=== PATIENT | female | born 1955 | race Caucasian/White ===

== ENCOUNTER 2023-02-02 10:31 | Emergency (ER) | payer MEDICARE, MEDICAID, SELFPAY ==
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
--- NOTE | ~2023-02-02 | XR_ITS ---
EXAMINATION: XR KNEE, RIGHT CLINICAL INFORMATION: Fall. Pain. COMPARISON: None available. TECHNIQUE: Four views of the right knee. 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 No fracture, dislocation or x-ray evidence of loosening. No significant joint effusion. Soft tissue swelling over the inferior patella and patellar tendon. XR/XR knee RT 3V IMPRESSION: No fracture or dislocation. Soft tissue swelling over the inferior patella and patellar tendon.
[2023-02-02 11:33] VITALS: BP 148/82; PULSE 62; RESP 19; TEMP 36.6; O2SAT 98; BMI 30.7
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
[2023-02-02] MEDS: Lidocaine HCl 1 % MPF 5 ML VIAL SUBCUT (14:12)
[2023-02-02] MEDS: Bacitracin Oint 0.9 GM PACKET 3 APPL TOPICAL (14:13)
[2023-02-02] MEDS: Diphth,Pertus(ACell),Tet Adult 0.5 ML SYRINGE IM (14:21)
[2023-02-02] MEDS: Acetaminophen 325 MG TABLET 650 MG PO (14:21)
[2023-02-02 15:05] VITALS: BP 141/63; PULSE 81; RESP 18; O2SAT 98
== END 2023-02-02 15:22 | disposition home or self-care (01) ==
PROVIDERS: Emergency Provider Student in an Organized Health Care Education/Training Program; PCP Internal Medicine
DX: S01.111A Laceration without foreign body of right eyelid and periocular area, initial encounter (principal); W01.198A Fall on same level from slipping, tripping and stumbling with subsequent striking against other object, initial encounter; T25.212A Burn of second degree of left ankle, initial encounter; T22.111A Burn of first degree of right forearm, initial encounter; X10.2XXA Contact with fats and cooking oils, initial encounter; Y93.G3 Activity, cooking and baking; Y92.010 Kitchen of single-family (private) house as the place of occurrence of the external cause; Y99.9 Unspecified external cause status
CPT/HCPCS: 12011; 16020; 70450; 73562; 90471; 90715; 99284

== ENCOUNTER 2023-03-15 08:00 | Outpatient (RCR) | payer MEDICARE, MEDICAID, SELFPAY | END 2023-03-17 10:52 | disposition home or self-care (01) | LOC: HO.WCC 08:00 | PROVIDERS: PCP Internal Medicine; Visit Provider Surgery | DX: T25.212A Burn of second degree of left ankle, initial encounter (principal); I25.10 Atherosclerotic heart disease of native coronary artery without angina pectoris; T31.0 Burns involving less than 10% of body surface; X10.2XXA Contact with fats and cooking oils, initial encounter; Y93.G3 Activity, cooking and baking; Y92.9 Unspecified place or not applicable; Y99.9 Unspecified external cause status; Z87.891 Personal history of nicotine dependence; Z79.2 Long term (current) use of antibiotics; Z79.899 Other long term (current) drug therapy | CPT/HCPCS: 16020; 99212 ==

== ENCOUNTER 2025-08-19 09:08 | Observation (INO) | payer MEDICARE, SELFPAY ==
--- OUTSIDE RECORDS SUMMARY | 2025-08-17 23:59 | XMS_ITS | Continuity of Care Document ---
Author Organization [facility] Address [address] [place] [id number] Name Relationship Address Phone COTTON, CEM Personal Relationship Unknown Lisa vailable COTTON, CEM Personal Relationship Unknown Lisa vailable COTTON, CEM Personal Relationship Unknown Lisa vailable COTTON, CEM Personal Relationship Unknown Lisa vailable COTTON, CEM Personal Relationship Unknown Lisa vailable COTTON, CEM Personal Relationship Unknown Lisa vailable COTTON, CEM Personal Relationship Unknown Lisa vailable COTTON, CEM Personal Relationship Unknown Lisa vailable COTTON, CEM Personal Relationship Unknown Lisa vailable STAFINSKI, MICHAEL child Unknown Unavaila ble COTTON, CEM Personal Relationship Unknown Lisa vailable STADINSKI, FREDRICK child Unknown Unavail able COTTON, CEM Personal Relationship Unknown Lisa vailable COTTON, CEM Personal Relationship Unknown Lisa vailable COTTON, CEM Personal Relationship Unknown Lisa vailable COTTON, CEM Personal Relationship Unknown Lisa vailable COTTON, CEM Personal Relationship Unknown Lisa vailable COTTON, CEM Personal Relationship Unknown Lisa vailable COTTON, CEM Personal Relationship Unknown Lisa vailable COTTON, CEM spouse Unknown Unavailable COTTON, CEM Personal Relationship Unknown Lisa vailable COTTON, CEM Personal Relationship Unknown Lisa vailable COTTON, CEM Personal Relationship Unknown Lisa vailable COTTON, CEM Personal Relationship Unknown Lisa vailable COTTON, CEM Personal Relationship Unknown Lisa vailable COTTON, CEM Personal Relationship Unknown Lisa vailable COTTON, CEM Personal Relationship Unknown Lisa vailable COTTON, CEM Personal Relationship Unknown Lisa vailable COTTON, CEM Personal Relationship Unknown Lisa vailable COTTON, CEM Personal Relationship Unknown Lisa vailable COTTON, CEM Personal Relationship Unknown Lisa vailable COTTON, CEM Personal Relationship Unknown Lisa vailable COTTON, CEM Personal Relationship Unknown Lisa vailable COTTON, CEM Personal Relationship Unknown Lisa vailable COTTON, CEM Personal Relationship Unknown Lisa vailable COTTON, CEM Personal Relationship Unknown Lisa vailable COTTON, CEM Personal Relationship Unknown Lisa vailable COTTON, CEM Personal Relationship Unknown Lisa vailable COTTON, CEM Personal Relationship Unknown Lisa vailable COTTON, CEM Personal Relationship Unknown Lisa vailable COTTON, CEM Personal Relationship Unknown Lisa vailable COTTON, CEM Personal Relationship Unknown Lisa vailable COTTON, CEM Personal Relationship Unknown Lisa vailable COTTON, CEM Personal Relationship Unknown Lisa vailable COTTON, CEM Personal Relationship Unknown Lisa vailable COTTON, CEM Personal Relationship Unknown Lisa vailable COTTON, CEM Personal Relationship Unknown Lisa vailable COTTON, CEM Personal Relationship Unknown Lisa vailable COTTON, CEM Personal Relationship Unknown Lisa vailable COTTON, CEM Personal Relationship Unknown Lisa vailable COTTON, CEM Personal Relationship Unknown Lisa vailable COTTON, ALTON Personal Relationship Unknown Unav ailable COTTON, ALTON Personal Relationship Unknown Unav ailable COTTON, CEM Personal Relationship Unknown Lisa vailable COTTON, CEM Personal Relationship Unknown Lisa vailable COTTON, CEM Personal Relationship Unknown Lisa vailable COTTON, CEM Personal Relationship Unknown Lisa vailable COTTON, CEM Personal Relationship Unknown Lisa vailable COTTON, CEM Personal Relationship Unknown Ilsa vailable COTTON, CEM Personal Relationship Unknown Lisa vailable COTTON, CEM Personal Relationship Unknown Lisa vailable COTTON, CEM Personal Relationship Unknown Lisa vailable COTTON, CEM Personal Relationship Unknown Lisa vailable COTTON, CEM Personal Relationship Unknown Lisa vailable COTTON, CEM Personal Relationship Unknown Lisa vailable COTTON, CEM Personal Relationship Unknown Lisa vailable COTTON, CEM Personal Relationship Unknown Lisa vailable COTTON, CEM Personal Relationship Unknown Lisa vailable COTTON, CEM Personal Relationship Unknown Lisa vailable COTTON, CEM Personal Relationship Unknown Lisa vailable COTTON, CEM Personal Relationship Unknown Lisa vailable COTTON, CEM Personal Relationship Unknown Lisa vailable COTTON, CEM Personal Relationship Unknown Lisa vailable ARGELIA MCGRATH mother Unknown Unavailable COTTON, CEM spouse Unknown Unavailable COTTON, CEM Personal Relationship Unknown Lisa vailable Care Team Providers Care Pipe And Test Supervisor Name Role Phone Renata CORNEJO, Jacqui Primary Care Physician Encounter [facility] Date(s): 07/18/25 - 08/17/25 [facility] [address] [place] [id number] Attending Physician: Mariama Guidry Admitting Physician: AdmMariama matos Referring Physician: AdmtrMariama Encounter Type: Triage Allergies, Adverse Reactions, Alerts Substance Criticality Severity Reaction Reaction Severity Status morphine itchy Active Tylenol with Codeine itchy Active Keflex Unable to assess criticality Intermittent Allergic skin rash Active Contrast Dye n/v Active Immunizations Given and Recorded Vaccine Date Status Refusal Reason influenza virus vaccine, inactivated 09/16/24 Marco rded influenza virus vaccine, inactivated 1 08/24/23 Gi red influenza virus vaccine, inactivated 06/21/22 Marco rded influenza virus vaccine, inactivated 06/06/21 Marco rded influenza virus vaccine, inactivated 05/22/20 Give n influenza virus vaccine, inactivated 2 06/17/18 Gi red influenza virus vaccine, inactivated 3 07/09/17 Gi red influenza virus vaccine, inactivated 4 06/29/16 Gi red influenza virus vaccine, inactivated 08/05/15 Give n influenza virus vaccine, inactivated 07/18/12 Give n influenza virus vaccine, inactivated 04/29/11 Give n influenza virus vaccine, inactivated 5 06/23/10 Gi red influenza virus vaccine, inactivated 6 06/16/09 Gi red pneumococcal 23-valent vaccine 7, 8 08/24/23 Given pneumococcal 23-valent vaccine 9 06/01/11 Given pneumococcal 23-valent vaccine 10 08/29/04 Given tetanus/diphtheria/pertussis, acel(Tdap) 02/02/23 Recorded zoster vaccine, inactivated 11 05/04/22 Given zoster vaccine, inactivated 12 10/06/21 Given SARS-CoV-2 (COVID-19) mRNA-1273 vaccine 08/25/21 R ecorded SARS-CoV-2 (COVID-19) mRNA-1273 vaccine 11/17/20 G iven SARS-CoV-2 (COVID-19) mRNA-1273 vaccine 10/20/20 G iven Influenza Virus Vaccine (oldterm) 06/13/19 Recorde d Hepatitis B Vaccine (old term) 11/30/16 Given Fluzone (oldterm) 07/16/14 Given pneumococcal 13-valent vaccine 04/24/13 Given Tetanus-Diphth Toxoids, Adult (oldterm) 04/29/11 G iven influ virus vac, H1N1, inactive(oldterm) 13 07/31/09 Given Influenza Inactive (IM) (oldterm) 14 06/03/08 Give n Influenza Inactive (IM) (oldterm) 07/17/07 Given Tet/Diphth/Acel, Pertussis (oldterm) 09/25/07 Give n Haemophilus B-Hepatitis B Vaccine 15 05/22/07 Give n 1Result Comment: [facility] [id number] 2Admin Note: [facility] 3Admin Note: [facility] 4Admin Note: Afluria made by [facility] 5Admin Note: Done at Dr. Gómez's office 6Admin Note: At Dr. Gómez 7Early/Late Reason: Early/Late Reason: Other : . 8Result Comment: [facility] [id number] 9Admin Note: VIS given 10Admin Note: Taken from [facility] sheet 11Result Comment: Shingrix#2 12Result Comment: First dose 13Admin Note: VIS given 14Admin Note: vis given 15Admin Note: #3 per pt Medications albuterol CFC free 90 mcg/inh inhalation aerosol 2, puffs, Inhalation, Every 4 hours, PRN, # 1 each, Refills 0, Tot. Refills 0, Soft Stop, 05/23/25 4:21:00 PM EDT, Aerosol, Route to Pharmacy Electronically, [id number], [facility], 158, cm, 05/21/25 9:07:00 EDT, Height, 78.6, kg, 12/22/23 18:19:00 EDT, Dry Weight Start Date: 05/23/25 Stop Date: 06/22/25 Status: Ordered Medication Dispense Status: Completed Quantity: 1.0 Unit: each Total Allowed Fills: 1 Fills Dispensed: 0 Aldactone 25 mg oral tablet 25 mg, 1, tablet, By Mouth, Daily, # 30 tablet, Refills 11, Tot. Refills 11, Maintenance, 06/27/24 11:05:00 AM EDT, Route to Pharmacy Electronically, [facility], Partial fill upon patient request if the prescription is for a schedule II opioid drug., 163, cm, 06/27/24 10:46:00 EDT, Height, 78.6, kg, 12/22/23 18:19:00 EDT, Dry Weight Start Date: 06/27/24 Stop Date: 06/22/25 Status: Ordered Medication Dispense Status: Completed Quantity: 30.0 Unit: tablet Total Allowed Fills: 12 Fills Dispensed: 0 Aspirin Low Dose 81 mg oral delayed release tablet 1 tablet = 81 mg, By Mouth, Daily, # 90 tablet, 2 Refills, Maintenance, 01/01/22 8:24:00 AM EDT, EC Tablet, [facility], Partial fill upon patient request if the prescription is for a schedule II opioid drug., 163, cm, 01/01/22 7:19:00 EDT, Height, 83, kg, 12/29/21 22:39:00 EDT, Dry Weight Start Date: 01/01/22 Status: Ordered Medication Dispense Status: Completed Quantity: 90.0 Unit: tablet Total Allowed Fills: 3 Fills Dispensed: 0 Atrovent HFA 17 mcg/inh inhalation aerosol 2 puffs, Inhalation, 4 times a day, # 3 each, 0 Refills, Maintenance, 08/09/24 11:12:00 AM EST, Aerosol, [facility], 163, cm, 08/05/24 9:09:00 EST, Height, 78.6, kg, 12/22/23 18:19:00 EDT, Dry Weight Start Date: 08/09/24 Stop Date: 11/07/24 Status: Ordered Medication Dispense Status: Completed Quantity: 3.0 Unit: each Total Allowed Fills: 1 Fills Dispensed: 0 Azithromycin 5 Day Dose Pack 250 mg oral tablet 1 pack/packet, By Mouth, Once, # 6 tablet, 0 Refills, Soft Stop, 05/21/25 9:31:00 AM EDT, Tablet, [facility], Partial fill upon patient request if the prescription is for a schedule II opioid drug., 158, cm, 05/21/25 9:07:00 EDT, Height, 78.6, kg, 12/22/23 18:19:00 EDT, Dry Weight Start Date: 05/21/25 Status: Ordered Medication Dispense Status: Completed Quantity: 6.0 Unit: tablet Total Allowed Fills: 1 Fills Dispensed: 0 Indications: Acute upper respiratory infection, unspecified; darunavir 800 mg oral tablet 1 tablet, By Mouth, Daily, WITH GENVOYA., # 30 tablet, 5 Refills, Maintenance, 03/19/25 8:56:00 AM EDT, [facility], 158, cm, 01/22/25 12:31:00 EDT, Height, 78.6, kg, 12/22/23 18:19:00 EDT, Dry Weight Start Date: 03/19/25 Status: Ordered Medication Dispense Status: Completed Quantity: 30.0 Unit: tablet Total Allowed Fills: 1 Fills Dispensed: 0 Dilt-XR 120 mg/24 hours oral capsule, extended release TAKE 1 CAPSULE BY MOUTH EVERY DAY Start Date: 02/08/25 Status: Ordered Medication Dispense Status: Completed Total Allowed Fills: 1 Fills Dispensed: 0 doxycycline hyclate 100 mg oral capsule 2 capsule = 200 mg, By Mouth, Once, # 2 capsule, 0 Refills, Soft Stop, 01/22/25 12:58:00 PM EDT, Capsule, [facility], Partial fill upon patient request if the prescription is for a schedule II opioid drug., 158, cm, 01/22/25 12:31:00 EDT, Height, 78.6, kg, 12/22/23 18:19:00 EDT, Dry Weight Start Date: 01/22/25 Status: Ordered Medication Dispense Status: Completed Quantity: 2.0 Unit: capsule Total Allowed Fills: 1 Fills Dispensed: 0 Indications: Insect bite (nonvenomous) of lower back and pelvis, initial encounter; Genvoya oral tablet 1 tablet, By Mouth, Daily, WITH FOOD., # 30 tablet, 5 Refills, Maintenance, 05/06/25 1:37:00 PM EDT, [facility], 30, TAKE 1 TABLET BY MOUTH EVERY DAY WITH FOOD, 158, cm, 04/01/25 15:00:00 EDT, Height, 78.6, kg, 12/22/23 18:19:00 EDT, Dry Weight Start Date: 05/06/25 Status: Ordered Medication Dispense Status: Completed Quantity: 30.0 Unit: tablet Total Allowed Fills: 1 Fills Dispensed: 0 hydrochlorothiazide-valsartan 25 mg-320 mg oral tablet 1 tablet, By Mouth, Daily, # 90 tablet, 3 Refills, Maintenance, 06/27/24 11:04:00 AM EDT, [facility], 90, 1 tablet By Mouth Daily, 163, cm, 06/27/24 10:46:00 EDT, Height, 78.6, kg, 12/22/23 18:19:00 EDT, Dry Weight Start Date: 06/27/24 Status: Ordered Medication Dispense Status: Completed Quantity: 90.0 Unit: tablet Total Allowed Fills: 4 Fills Dispensed: 0 isosorbide mononitrate 60 mg oral tablet, extended release 1 tablet = 60 mg, By Mouth, Daily in AM, # 30 tablet, 0 Refills, Maintenance, 03/25/25 5:02:00 PM EDT, EC Tablet, [facility] 3, Partial fill upon patient request if the prescription is fora schedule II opioid drug., 158, cm, 01/22/25 12:31:00 EDT, Height, 78.6, kg, 12/22/23 18:19:00 EDT, Dry Weight Start Date: 03/25/25 Status: Ordered Medication Dispense Status: Completed Quantity: 30.0 Unit: tablet Total Allowed Fills: 1 Fills Dispensed: 0 L-Citrulline 0 Refills, Maintenance, 03/26/25 11:42:00 AM EDT, Partial fill upon patient request if the prescription is for a schedule II opioid drug. Start Date: 03/26/25 Status: Ordered Medication Dispense Status: Completed Total Allowed Fills: 1 Fills Dispensed: 0 nitroglycerin 0.4 mg sublingual tablet 1 tablet = 0.4 mg, Sublingual, Every 5 minutes, PRN as needed for chest pain, not to exceed 3 doses/15 min--if pain persists, seek medical attention, # 25 tablet, 0 Refills, Maintenance, 01/01/22 8:30:00 AM EDT, Tablet, [facility], Partial fill upon patient request if the prescription is for a schedule II opioid drug., 163, cm, 01/01/22 7:19:00 EDT, Height, 83, kg, 12/29/21 22:39:00 EDT, Dry Weight Start Date: 01/01/22 Status: Ordered Medication Dispense Status: Completed Quantity: 25.0 Unit: tablet Total Allowed Fills: 1 Fills Dispensed: 0 rosuvastatin 40 mg oral tablet See Instructions, TAKE 1 TABLET BY MOUTH EVERY DAY, # 90 tablet, 3 Refills, Maintenance, 06/27/24 11:04:00 AM EDT, [facility], 163, cm, 06/27/24 10:46:00 EDT, Height, 78.6, kg, 12/21/2417:19:00 EDT, Dry Weight Start Date: 06/27/24 Status: Ordered Medication Dispense Status: Completed Quantity: 90.0 Unit: tablet Total Allowed Fills: 4 Fills Dispensed: 0 Symbicort 80mcg/4.5mcg Inhaler 2, inhalation, Inhalation, 2 times a day, in the morning and the evening rinse mouth and throat after use, # 6.9 Gm, Refills 0, Tot. Refills 0, Maintenance, 05/21/25 9:31:00 AM EDT, Aerosol, Route to Pharmacy Electronically, [id number], [facility], 158, cm, 9:07:00 EDT, Height, 78.6, kg, 12/22/23 18:19:00 EDT, Dry Weight Start Date: 05/21/25 Status: Ordered Medication Dispense Status: Completed Quantity: 6.9 Unit: g Total Allowed Fills: 1 Fills Dispensed: 0 Indications: Acute upper respiratory infection, unspecified; Vitamin D3 oral tablet 1 tablet = 10 mcg, By Mouth, Daily, 0 Refills, Maintenance, 11/09/23 2:34:00 PM EDT, Partial fill upon patient request if the prescription is for a schedule II opioid drug. 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 Esophageal diverticulum Confirmed Active Esophageal dysmotility Confirmed Active Phobia, flying Confirmed Active GERD (gastroesophageal reflux disease) Confirmed Active Cardiac microvascular disease Confirmed Active Presence of left artificial knee joint Confirmed Active HIV (human immunodeficiency virus infection) 1 Confirmed Active Hyperlipidemia Confirmed Active Obese class I Confirmed Active Osteoarthritis of left knee Confirmed Active Osteoarthritis of right knee Confirmed Active Presbyesophagus Confirmed Active [id number] negative Social History Social History Type Response Smoking Status Former smoker; Stopp ed at age: 46; entered on: 11/08/13 Sex Sex Representation Female (finding) Patient Care team information Care Team Personnel Name: Dang Reilly RN 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: [facility] 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 Member Role: Chargeback Analyst Name: Pamella Desir RN Position: [facility] RN Member Role: Primary Care Nurse Name: Noe Funk RN Position: [facility] RN Member Role: Primary Care Nurse Name: Ellie Mike Position: [facility] Outreach Member Role: Lifetime Consulting Physician Name: Chantelle Manriquez RN Position: [facility] RN Member Role: Primary Care Nurse Name: Fina Kaur RN Position: [facility] RN Member Role: Primary Care Nurse Name: Betty Sanabria RN Position: [facility] SN RN Member Role: Primary Care Nurse Name: Ca Cerrato RN Position: [facility] ED RN W/OE and Tasks Member Role: Primary Care Nurse Name: Tiff Almanza RN Position: [facility] RN Member Role: Primary Care Nurse Name: Molly Burrell RN Position: [facility] RN Member Role: Primary Care Nurse Name: Jacqui Yanez MD Position: [facility] Physician - Primary Care Member Role: PCP Address: [address] [place] [id number] [place] Telecom: Name: Luz Elena Hoffman RN Position: [facility] RN Member Role: Primary Care Nurse Name: Lennox Romero MD Position: [facility] Physician - Infectious Disease Member Role: Lifetime Consulting Physician Address: [address] [place] [address] [place] [address]- Telecom: Name: Alpa Patel RN Position: S RN Member Role: Primary Care Nurse Name: Cece Lenz LPN Position: S RN Member Role: Primary Care Nurse Name: Inez Mancia RN Position: S RN Member Role: Primary Care Nurse Care Team Related Persons Name: CEM KNAPP Name: ARGELIA MCGRATH Name: FREDRICK COLMENARES Name: MICHAEL RAMSEY Insurance Providers Guarantor name: KEREN KNAPP Health Plan Information #: 1 Payer: MEDICARE B Payer Identifier: PATEL Member Number: [id number] Group Number: NA Subscriber Identifier: NA Relationship to Subscriber: self Coverage Type: NA Coverage Verification Date: NA Telecom: NA Address: Health Plan Information #: 2 Payer: [employer] SECONDARY ONLY Payer Identifier: PATEL Member Number: [id number] Group Number: [id number] Subscriber Identifier: NA Relationship to Subscriber: self Coverage Type: Medicare Other Coverage Verification Date: NA Telecom: NA Address:
--- OUTSIDE RECORDS SUMMARY | 2025-08-17 23:59 | XMS_ITS | Continuity of Care Document ---
Author Organization [facility] Address [address] [place] [address]- Support Name Relationship Address Phone COTTON, CEM [...] vailable COTTON, CEM spouse Unknown Unavailable COTTON, CME Personal Relationship Unknown Lisa vailable COTTON, CEM [...] CEM Personal Relationship Unknown Lisa vailable COTTON, ECM Personal Relationship Unknown Lisa vailable COTTON, CEM Personal Relationship Unknown Lisa vailable COTTON, CEM Personal Relationship Unknown Lisa vailable COTTON, CEM Personal Relationship Unknown Lisa vailable COTTON, CEM Personal Relationship Unknown Lisa vailable COTTON, CME Personal Relationship Unknown Lisa vailable COTTON, CEM [...] Unknown Lisa vailable Care Team Providers Care Office Clerk Assistant Name Role Phone Renata CORNEJO, Jacqui Primary Care Physician [place] [facility] [place]): [place] 08/17/25 [facility] [place], [place] [address] Attending Physician: Nick STARK, Joaquín Castellon Admitting Physician: Nick STARK, Joaquín Castellon Referring Physician: Jacqui Yanez MD Encounter Type: Pre-OutPatient One Time Allergies, Adverse Reactions, Alerts Substance Criticality Severity Reaction Reaction Severity Status morphine itchy Active Keflex Unable to assess criticality Intermittent Allergic skin rash Active Tylenol with Codeine itchy Active Contrast Dye n/v Active Immunizations Given [...] Vaccine 15 05/22/07 Give n 1Result Comment: [facility] [id number] 2Admin Note: [facility] 3Admin Note[facility] 4Admin Note: Afluria made by [employer] 5Admin Note: Done at Dr. Gómez's office 6Admin Note: At Dr. Gómez 7Early/Late Reason: Early/Late Reason: Other : . 8Result Comment: [facility] [id number] 9Admin Note: VIS given 10Admin Note: Taken [...] PM EDT, Aerosol, Route to Pharmacy Electronically, [id number], [facility], 158, cm, 05/21/25 9:07:00 EDT, [...] 11:05:00 AM EDT, Route to Pharmacy Electronically, [facility], Partial fill upon patient request [...] Maintenance, 01/01/22 8:24:00 AM EDT, EC Tablet, [facility], Partial fill upon patient request if [...] Refills, Maintenance, 08/09/24 11:12:00 AM EST, Aerosol, [facility], 163, cm, 08/05/24 9:09:00 EST, Height, 78.6, kg, 12/22/23 18:19:00 EDT, Dry Weight Start Date: 08/09/24 Stop Date: 11/07/24 Status: Ordered Medication Dispense Status: Completed Quantity: 3.0 Unit: each Total Allowed Fills: 1 Fills Dispensed: 0 Azithromycin 5 Day Dose Pack 250 mg oral tablet 1 pack/packet, By Mouth, Once, # 6 tablet, 0 Refills, Soft Stop, 05/21/25 9:31:00 AM EDT, Tablet, [facility], Partial fill upon patient request if [...] 5 Refills, Maintenance, 03/19/25 8:56:00 AM EDT, [facility], 158, cm, 01/22/25 12:31:00 EDT, Height, [...] Soft Stop, 01/22/25 12:58:00 PM EDT, Capsule, [facility], Partial fill upon patient request [...] 5 Refills, Maintenance, 05/06/25 1:37:00 PM EDT, [facility], 30, TAKE 1 TABLET BY MOUTH [...] 3 Refills, Maintenance, 06/27/24 11:04:00 AM EDT, [facility], 90, 1 tablet By Mouth [...] Maintenance, 03/25/25 5:02:00 PM EDT, EC Tablet, [facility], Partial fill upon patient request if [...] Refills, Maintenance, 01/01/22 8:30:00 AM EDT, Tablet, [facility], Partial fill upon patient request [...] 3 Refills, Maintenance, 06/27/24 11:04:00 AM EDT, [facility], 163, cm, 06/27/24 10:46:00 EDT, [...] AM EDT, Aerosol, Route to Pharmacy Electronically, [id number], [facility], 158, cm, 9:07:00 EDT, Height, [...] Benign essential hypertension Confirmed Active CAD in [place] artery Confirmed Active Endothelial dysfunction of coronary [...] right knee Confirmed Active Presbyesophagus Confirmed Active [id number] negative Social History Social History Type Response Smoking Status Former smoker; Stopp ed at age: 46; entered on: 11/08/13 Sex Sex Representation Female (finding) Patient Care team information Care Team Personnel Name: Dang Reilly RN 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 Member Role: Inlayer Silver Name: Pamella Desir RN Position: [facility] RN Member Role: Primary Care Nurse Name: Noe Funk RN Position: [facility] RN Member Role: Primary Care Nurse Name: Ellie Mike Position: [facility] Outreach Member Role: Lifetime Consulting Physician Name: Chantelle Manriquez RN Position: [facility] RN Member Role: Primary Care Nurse Name: Fina Kaur RN Position: [facility] RN Member Role: Primary Care Nurse Name: Betty Sanabria RN Position: [facility] SN RN Member Role: Primary Care Nurse Name: Ca Cerrato RN Position: [facility] ED RN W/OE and Tasks Member Role: Primary Care Nurse Name: Tiff Almanza RN Position: [facility] RN Member Role: Primary Care Nurse Name: Molly Burrell RN Position: [facility] RN Member Role: Primary Care Nurse Name: Jacqui Yanez MD Position: [facility] Physician - Primary Care Member Role: PCP Address: [address] [place] [address]- Telecom: Name: Luz Elena Hoffman RN Position: [facility] RN Member Role: Primary Care Nurse Name: Lennox Romero MD Position: [facility] Physician - Infectious Disease Member Role: Lifetime Consulting Physician Address: [address] [place] [address] [place] [address]- Telecom: Name: Alpa Patel RN Position: [facility] RN Member Role: Primary Care Nurse Name: Cece Lenz LPN Position: [facility] RN Member Role: Primary Care Nurse Name: Inez Mancia RN Position: S RN Member Role: Primary Care Nurse Care Team Related Persons Name: CEM KNAPP Name: ARGELIA MCGRATH Name: FREDRICK COLMENARES Name: MICHAEL RAMSEY Insurance Providers Guarantor name: KEREN KNAPP [facility] Information #: 1 Payer: MEDICARE B Payer Identifier: Member Number: [id number] Group Number: Subscriber Identifier: [id number] Relationship to Subscriber: self Coverage Type: NA Coverage Verification Date: NA Telecom: NA Address: [facility] Information #: 2 Payer: MEDEX SECONDARY ONLY Payer Identifier: Member Number: [id number] Group Number: Subscriber Identifier: [id number] Relationship to Subscriber: self Coverage Type: Medicare Other Coverage Verification Date: NA Telecom: NA Address:
[2025-08-19] VITALS (11 sets, daily range): BP systolic 120–160; BP diastolic 58–92; PULSE 77–92; RESP 14–22; TEMP 36.6–36.9; O2SAT 87–96; BMI 27.3
--- NOTE | ~2025-08-19 | CT_ITS ---
EXAMINATION: CT CHEST WITHOUT IV CONTRAST INDICATION: worsening cough, chills COMPARISON: There are no prior studies available for comparison. TECHNIQUE: Helical CT scan of the chest was performed without intravenous contrast. Coronal and sagittal reformatted images were generated and reviewed. This CT exam was performed with one or more of the following dose reduction techniques: automated exposure control, adjustment of the mA and/or kV according to patient size, use of iterative reconstruction technique. DLP: 296 mGy-cm CHEST: THYROID: The thyroid is unremarkable. LUNGS: There is mild bronchial wall thickening and partial opacification in the lower lobes, compatible with bronchitis. There are no focal airspace opacities or pulmonary nodules. MEDIASTINUM: There is no mediastinal lymphadenopathy. MYRIAM: Evaluation of the hilar regions is limited by lack of intravenous contrast material. CARDIOVASCULATURE: The heart is normal in size. There is no pericardial effusion. The thoracic aorta is normal in caliber. DEGREE OF CORONARY CALCIFICATION: severe PLEURA: There is no pleural effusion. No pneumothorax. MAIN AIRWAYS: The mainstem bronchi and proximal branches are patent. AXILLA: There is no axillary lymphadenopathy. BONES AND SOFT TISSUES: There is degenerative disc disease of the spine. UPPER ABDOMEN: The visualized portions of the liver, spleen, and adrenals have an unremarkable unenhanced appearance. CT/CT chest wo IV con IMPRESSION: 1. Mild bronchial wall thickening and partial opacification in the lower lobes, compatible with bronchitis. 2. Severe coronary arterial calcification. Electronically signed by: Kobe Maria MD 08/19/2025 11:16 AM [facility]
--- NOTE | 2025-08-19 09:30 | ECG_ITS ---
Test Reason : syncope Blood Pressure : */* mmHG Vent. Rate : 79 BPM Atrial Rate : 79 BPM P-R Int : 140 ms QRS Dur : 84 ms QT Int : 380 ms P-R-T Axes : 68 30 49 degrees QTcB Int : 435 ms Normal sinus rhythm Nonspecific ST abnormality Abnormal ECG No previous ECGs available Referred By: Mary Martin Electronically Signed By: RONY DWYER MD
--- NOTE | 2025-08-19 09:34 | ED.SOB ---
HPI - SOB/Dyspnea General Chief Complaint: Dyspnea Stated Complaint: SOB,N/V,RECENT URI/ON ABX & PRED PER EMS Time Seen by Provider: 08/19/25 09:22 Source: patient, EMS and old records reviewed Mode of arrival: EMS Limitations: no limitations History of Present Illness ED Provider: DANIEL MARTI Narrative: 69-year-old female with past medical history of asthma not on home O2, HIV with undetectable viral load on medications, hypertension, hyperlipidemia, tachycardia, GERD, CAD s/p stent 2 years ago, ? stenosis of valve unclear which one who was seen at for URI on Tuesday - no cxr, neg viral panel, started on doxy and prednisone. 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 She was sweaty, dizzy, sick to her stomach. No fall but syncope possible. She notes she is short of breath and it hurts to cough and breathe. She has fatigue, chills, cough with green sputum. she denies prior to the episode any worsening chest pain or trouble breathing. She has not had any vomiting but she did have diarrhea during the episode. She states this is not remind her of her prior cardiac issues requiring stent. Preceding her illness she denies any recent travel, sick contacts, procedures. EMS noted her O2 level is 91 so they placed her on 2 L nasal cannula. MD elicited complaint: shortness of breath ( Syncope) and cough Pertinent past history: asthma Onset (ago): day(s) ( started Tuesday) Context: recent illness Timing: intermittent Severity: moderate Exacerbating factors: exertion and coughing Relieving factors: oxygen and rest Known history of: asthma and HIV Associated symptoms: chest pain, cough, wheezing, sputum production, diaphoresis, nausea/vomiting and syncope Treatment prior to arrival: oxygen Related Data Previous Rx's ?Medication ?Instructions ?Recorded amoxicillin 875 mg-potassium 1 tab PO BID 7 days #14 tabs 02/02/23 clavulanate 125 mg tablet Allergies Allergy/AdvReac Type Severity Reaction Status Date / Time codeine AdvReac Itching Verified 08/19/25 09:26 Iodinated Contrast Media AdvReac Itching Verified 08/19/25 09:26 (Contrast Dye) morphine AdvReac Itching Verified 08/19/25 09:26 Review of Systems Review of Systems: Yes all other systems are reviewed and are negative [facility] Past Medical History Attestation statement: The following information was validated with the patient. Source: old records reviewed Medical History Asthma Hyperlipidemia HTN (hypertension) CAD (coronary artery disease) HIV (human immunodeficiency virus infection) GERD (gastroesophageal reflux disease) Social History Social History (Updated 08/19/25 @ 09:46 by Mary Martin DO) Patient Tobacco Use Status: Never used Tobacco Smoked in Last 30 Days: No Advance Directives: No Advance Directives Information Provided: Yes Physical Exam Vital Signs: Vital Signs: Last Vital Signs Temp 97.8 F 08/19/25 09:18 Pulse 88 08/19/25 12:42 Resp 20 08/19/25 12:42 BP 129/59 L 08/19/25 12:42 Pulse Ox 92 08/19/25 12:42 O2 Del Method Nasal Cannula 08/19/25 12:42 O2 Flow Rate 2 08/19/25 12:42 Oxygen Flow Rate 2 08/19/25 09:18 BMI result Body Mass Index 27.3 Appearance: Alert. Oriented X3. Mild acute distress. Eyes: Pupils equal, round and reactive to light. ENT: Pharynx dry MM,atraumatic Neck: Normal inspection. Neck supple. CVS: Normal heart rate and rhythm. Pulses normal. Respiratory: No respiratory distress. Breath sounds coarse diminished and wheezes throughout Abdomen: Soft and nontender. Skin: Skin warm and dry. Normal skin color. Extremities: No lower extremity edema. Neuro: Oriented X 3. No motor deficit. No sensory deficit. CN2-12 intact Course Course Course Narrative: 11:11 AM 08/19/2025 (DANIEL PEDERSON): Patient became hypoxic down to 87% she is back on 2 L nasal cannula satting above 92%. At this time given her presentation and symptoms she will need admission to the hospital Medications Administered Discontinued Medications Generic Name Dose Route Start Last Admin Trade Name Freq PRN Reason Stop Dose Admin Acetaminophen 650 mg 08/19/25 12:54 08/19/25 12:59 Acetaminophen 325 Mg Tablet PO 08/19/25 12:55 650 mg ONCE ONE Administration Albuterol Sulfate 5 mg/ 0 mg 08/19/25 09:39 08/19/25 09:41 Albuterol/Ipratropium 3 ml INHALE 08/19/25 09:40 1 each ONCE ONE Administration Lactated Ringer's 1,000 mls @ 999 mls/hr 08/19/25 09:30 08/19/25 10:00 Lr IV 08/19/25 10:30 999 mls/hr .Q1H1M ONE Administration Ceftriaxone Sodium 1 gm/ 50 mls @ 100 mls/hr 08/19/25 09:30 08/19/25 10:42 Sodium Chloride IV 08/19/25 09:59 Infused ONCE ONE Infusion Methylprednisolone Sodium Succinate 60 mg 08/19/25 09:30 08/19/25 09:57 Methylprednisolone Sod Succ 125 Mg/2 Ml Vial IVPUSH 08/19/25 09:31 60 mg ONCE ONE Administration Oseltamivir Phosphate 75 mg 08/19/25 11:00 08/19/25 12:59 Oseltamivir Phosphate 75 Mg Capsule PO 08/19/25 11:01 75 mg ONCE ONE Administration Medical Decision Making Medical Decision Making MDM Narrative: 69-year-old female with past medical history of asthma not on home O2, HIV with undetectable viral load on medications, hypertension, hyperlipidemia, tachycardia, GERD, CAD s/p stent 2 years ago, ? stenosis of valve who had a recent upper respiratory infection and was diagnosed with question bronchitis started on prednisone and doxycycline Tuesday. She now comes in with syncopal event at work she was found to have an O2 sat of 91%. She is very wheezy on exam. I am going to start gentle fluids, bronch protocol, corley labs including cultures and lactic acid. I am ordering empiric ceftriaxone. He has an allergy to IV dye so I am going to start with a CT chest to rule out pneumonia as well as effusion. I will add on a D-dimer. If D-dimer is positive I am going to obtain a V/Q scan. She will get troponin x2. This seems more infectious in nature. Differential Diagnosis Differential Diagnoses: The differential diagnosis associated with the presentation includes pneumonia, viral syndrome, near syncope, COBY, anemia, low probability of PE Admission/Observation Consideration of admission/observation: Escalation of care including admission/observation considered admit for hypoxia and further workup 87% on RA Consult Healthcare Provider Management of the patient was discussed with: Hospitalist (will admit) Lab Data [facility] Lab Attestation statement: I reviewed the patient's lab results. 08/19/25 09:47 08/19/25 09:47 Labs: Lab Results 08/19/25 08/19/25 08/19/25 Range/Units 09:47 09:53 10:13 WBC 13.2 H (4.8-10.8) X10*3/uL RBC 4.05 L (4.20-5.50) X10*6/uL Hgb 13.1 (12.0-16.0) g/dl Hct 39.0 (37.0-47.0) % MCV 96.3 (80.0-98.0) fL MCH 32.3 (27.0-33.0) pg MCHC 33.6 (31.0-35.0) g/dl RDW 13.4 (11.0-16.0) % Plt Count 198 (160-400) X10*3/uL MPV 10.3 (9.4-12.3) fL Immature Gran % (Auto) 0.8 H (0.0-0.4) % Neut % (Auto) 80.0 H (45-73) % Lymph % (Auto) 6.4 L (20-40) % Elliott % (Auto) 12.6 H (2-11) % Eos % (Auto) 0.0 (0-4) % Baso % (Auto) 0.2 (0-2) % Lymph # (Auto) 0.8 L (1.2-4.9) X10*3/uL Elliott # (Auto) 1.7 H (0.1-1.2) X10*3/uL Eos # (Auto) 0.0 (0.0-0.4) X10*3/uL Baso # (Auto) 0.0 (0.0-0.2) X10*3/uL Abs Immat Gran (auto) 0.10 H (0.00-0.03) X10*3/uL Absolute Neuts (auto) 10.6 H (2.0-8.3) x10*3/uL Absolute Nucleated RBC 0.000 (0.0-0.012) X10*3/uL Nucleated RBC % (auto) 0.0 (0.0-0.2) /100WBC Smear Tech's Comments VERIFIED D-Dimer High Sensitivty < 150 NG/ML VBG pH 7.38 (7.32-7.43) VBG pCO2 42 mmHg VBG pO2 53 mmHg VBG HCO3 25 (22-26) mmol/L VBG O2 Saturation 81.0 % VBG Base Excess 0.1 mmol/L Sodium 138 (135-145) mmol/L Potassium 4.1 (3.3-5.1) mmol/L Chloride 104 (96-108) mmol/L Carbon Dioxide 23 (22-29) mmol/L Anion Gap 15 (12-20) BUN 32 H (9-16) mg/dL Creatinine 1.18 (0.5-1.4) mg/dL Estim Creat Clear Calc 45.1 Estimated GFR 46 Random Glucose 130 H (60-115) mg/dL Lactic Acid 1.0 (0.5-2.0) mmol/L Calcium 9.4 (8.4-10.2) mg/dL Magnesium 1.9 (1.6-2.6) mg/dL Total Bilirubin 0.3 (0.0-1.0) mg/dL Direct Bilirubin 0.1 (0.0-0.5) mg/dL AST 36 H (5-31) U/L ALT 26 (0-31) U/L Alkaline Phosphatase 71 (39-117) U/L Troponin I High Sens 3.8 (<3.5-17.0) ng/L C-Reactive Protein 2.62 H (< or = 0.50) mg/dL Total Protein 7.6 (6.5-8.0) g/dL Albumin 4.6 (3.5-5.0) g/dL Lipase 12 (8-78) U/L Procalcitonin 0.04 ng/mL Urine Color Urine Appearance Urine pH (5.0-9.0) Ur Specific [place] (1.005-1.025) Urine Protein (Neg-Trace) mg/dL Urine Glucose (UA) (Negative) mg/dL Urine Ketones (Negative) mg/dL Urine Blood (Negative) Urine Nitrite (Negative) Ur Leukocyte Esterase (Negative) Influenza Type A (PCR) POSITIVE A (Negative) Influenza Type B (PCR) NEGATIVE (Negative) RSV RNA Qual (PCR) NEGATIVE (Negative) SARS-CoV-2 RNA (RT-PCR) NEGATIVE (Negative) 12/22/25 12/22/25 Range/Units 12:39 12:55 WBC (4.8-10.8) X10*3/uL RBC (4.20-5.50) X10*6/uL Hgb (12.0-16.0) g/dl Hct (37.0-47.0) % MCV (80.0-98.0) fL MCH (27.0-33.0) pg MCHC (31.0-35.0) g/dl RDW (11.0-16.0) % Plt Count (160-400) X10*3/uL MPV (9.4-12.3) fL Immature Gran % (Auto) (0.0-0.4) % Neut % (Auto) (45-73) % Lymph % (Auto) (20-40) % Elliott % (Auto) (2-11) % Eos % (Auto) (0-4) % Baso % (Auto) (0-2) % Lymph # (Auto) (1.2-4.9) X10*3/uL Elliott # (Auto) (0.1-1.2) X10*3/uL Eos # (Auto) (0.0-0.4) X10*3/uL Baso # (Auto) (0.0-0.2) X10*3/uL Abs Immat Gran (auto) (0.00-0.03) X10*3/uL Absolute Neuts (auto) (2.0-8.3) x10*3/uL Absolute Nucleated RBC (0.0-0.012) X10*3/uL Nucleated RBC % (auto) (0.0-0.2) /100WBC Smear Tech's Comments D-Dimer High Sensitivty NG/ML VBG pH (7.32-7.43) VBG pCO2 mmHg VBG pO2 mmHg VBG HCO3 (22-26) mmol/L VBG O2 Saturation % VBG Base Excess mmol/L Sodium (135-145) mmol/L Potassium (3.3-5.1) mmol/L Chloride (96-108) mmol/L Carbon Dioxide (22-29) mmol/L Anion Gap (12-20) BUN (9-16) mg/dL Creatinine (0.5-1.4) mg/dL Estim Creat Clear Calc Estimated GFR Random Glucose (60-115) mg/dL Lactic Acid (0.5-2.0) mmol/L Calcium (8.4-10.2) mg/dL Magnesium (1.6-2.6) mg/dL Total Bilirubin (0.0-1.0) mg/dL Direct Bilirubin (0.0-0.5) mg/dL AST (5-31) U/L ALT (0-31) U/L Alkaline Phosphatase (39-117) U/L Troponin I High Sens 4.3 (<3.5-17.0) ng/L C-Reactive Protein (< or = 0.50) mg/dL Total Protein (6.5-8.0) g/dL Albumin (3.5-5.0) g/dL Lipase (8-78) U/L Procalcitonin ng/mL Urine Color Yellow Urine Appearance Clear Urine pH 5.0 (5.0-9.0) Ur Specific [place] >= 1.030 H (1.005-1.025) Urine Protein 30 (1+) H (Neg-Trace) mg/dL Urine Glucose (UA) 250 H (Negative) mg/dL Urine Ketones Trace (Negative) mg/dL Urine Blood Negative (Negative) Urine Nitrite Negative (Negative) Ur Leukocyte Esterase Negative (Negative) Influenza Type A (PCR) (Negative) Influenza Type B (PCR) (Negative) RSV RNA Qual (PCR) (Negative) SARS-CoV-2 RNA (RT-PCR) (Negative) Independent Interpretation I performed an independent interpretation of an: EKG and CT Scan (bronchitis) Interpretation: Rate: 79 Rhythm: NSR [place]: normal Normal P waves. Normal GRETA. Normal QRS complex. ST T wave : normal no PINEDA qTC: 435 prior studies: no acute ischemia The study has been interpreted contemporaneously by me. . Radiology Impression Discussion of test interpretation with radiology: I have reviewed the radiologist's reading. Independent Historian Clinical information obtained from an independent historian. History obtained from or confirmed by: EMS and Other (daughter) External Record Review External record reviewed: Outpatient record, Prior outpatient labs and Prior outpatient radiology Discharge Plan Discharge Clinical Impression: Influenza A, Bilateral wheezing, Hypoxia Syncope Qualifiers: Syncope type: unspecified Qualified Code(s): R55 - Syncope and collapse Patient Disposition: Admitted As Inpatient Print Language: Macedonian
[2025-08-19] MEDS: Albuterol Sulfate 5 MG, Albuterol/Iprat 2.5/0.5MG 3 ML 3 ML INHALE (09:41)
[2025-08-19 09:55] LABS: Hematocrit 39.0 % (37.0-47.0); Hemoglobin 13.1 g/dl (12.0-16.0); Imm Gran Abs Auto 0.10 X10*3/uL (0.00-0.03); Imm Gran Pct Auto 0.8 % (0.0-0.4); Lymphocytes Absolute Auto 0.8 X10*3/uL (1.2-4.9); MANUAL DIFF FLAG SCAN; Mean Corpuscular HGB Conc 33.6 g/dl (31.0-35.0); Mean Corpuscular Hemoglobin 32.3 pg (27.0-33.0); Mean Corpuscular Volume 96.3 fL (80.0-98.0); NRBC Abs Auto 0.000 X10*3/uL (0.0-0.012); NRBC Pct Auto 0.0 /100WBC (0.0-0.2); Platelet Count 198 X10*3/uL (160-400); Red Blood Count 4.05 X10*6/uL (4.20-5.50); SCAN SMEAR FLAG 1; White Blood Count 13.2 X10*3/uL (4.8-10.8)
[2025-08-19 09:58] LABS: VBG HCO3 25 mmol/L (22-26); VBG O2 % Saturation 81.0 %
[2025-08-19 09:59] LABS: Venous Blood Gas Refer to POC result
[2025-08-19] MEDS: Lactated Ringers 1,000 ML 999 ML IV (10:00)
[2025-08-19 10:16] LABS: Troponin-I High Sensitivity 3.8 ng/L (<3.5-17.0)
[2025-08-19 10:21] LABS: Alanine Aminotransferase 26 U/L (0-31); Albumin Level 4.6 g/dL (3.5-5.0); Alkaline Phosphatase 71 U/L (39-117); Anion Gap 15 (12-20); Aspartate Amino Transferase 36 U/L (5-31); Blood Urea Nitrogen 32 mg/dL (9-16); Calcium 9.4 mg/dL (8.4-10.2); Carbon Dioxide 23 mmol/L (22-29); Chloride 104 mmol/L (96-108); Creatinine Clr Calc Pharmacy 45.1; Estimated Glomerular Filt Rate 46; Lipase 12 U/L (8-78); Magnesium 1.9 mg/dL (1.6-2.6); Potassium 4.1 mmol/L (3.3-5.1); Sodium 138 mmol/L (135-145); Total Protein 7.6 g/dL (6.5-8.0)
[2025-08-19 10:23] LABS: D Dimer High Sensitivity < 150 NG/ML
[2025-08-19 10:34] LABS: Procalcitonin 0.04 ng/mL
--- NOTE | 2025-08-19 10:44 | PC.NURSE ---
Patient changed into hospital attire. Patient incontinent of stool, soiled clothing placed in belongings bag. Patient cleaned, bedding clean. Daughter at the bedside. Call goodrich placed within reach. No signs of distress. Respirations even and unlabored.
[2025-08-19 10:54] LABS: Resp Syncy Virus RNA Qual PCR NEGATIVE (Negative); SARS COV2 PCR INHOUSE NEGATIVE (Negative)
--- OUTSIDE RECORDS SUMMARY | 2025-08-19 12:08 | XMS_ITS | Patient Health Record ---
Author Organization [facility] Address [address] [place] [address] Care Team Providers Care Movie Writer Name Role Phone Pedro Luis Rich Jr Reason For Referral No Information Plan Of Treatment No Information
--- OUTSIDE RECORDS SUMMARY | 2025-08-19 12:09 | XMS_ITS | Clinical Summary ---
Author Organization [employer] Address [address] [facility] 7t [place] [address] Care Team Providers Care Composition Professor Name Role Phone Unavailable Primary Care Provider Unavailabl e Allergies Active Allergy Reactions Criticality Noted Date Comments Acetaminophen-Codeine Hives 12/21/2019 Cephalexin Itching 12/08/2023 Iodinated Contrast Media Hives 12/21/2019 Morphine Hives 12/21/2019 Medications Ventolin HFA 108 (90 Base) MCG/ACT inhaler Inhale 2 puffs every 4 (four) hours if needed for wheezing. 3 Active carvedilol (Coreg) 12.5 MG tablet Take 12.5 mg by mouth 2 times daily. Active diphenhydrAMINE (Benadryl Allergy) 25 MG capsule Take 25 mg by mouth. 4 Active Darunavir 800 MG tablet TAKE 1 TABLET BY MOUTH EVERY DAY WITH GENVOYA Active aspirin (Aspirin Low Dose) 81 MG chewable tablet Chew 81 mg. 2 Active omeprazole (PriLOSEC) [address] capsule Take 20 mg by mouth 2 times daily. 3 Active rosuvastatin (Crestor) 40 MG tablet Take 40 mg by mouth in the morning. Active valsartan-hydroC HLOROthiazide (Diovan-HCT) 320-25 MG tablet Take 1 tablet by mouth in the morning. Active benzonatate (Tessalon) 100 MG capsule Take 1 capsule by mouth every 8 (eight) hours if needed for cough. 4 Active diazePAM (Valium) 5 MG tablet Take 1 tablet by mouth every 6 (six) hours if needed for anxiety. 5 Active Genvoya [phone] MG tablet take 1 tablet by mouth every day with food Active fluticasone (Flonase) 50 MCG/ACT nasal spray Administer 1 spray into affected nostril(s) Once per day. Active isosorbide mononitrate ER (Imdur) 60 MG 24 hr tablet Take 60 mg by mouth Once per day. Active nitroglycerin (Nitrostat) 0.[address] 0.4 mg under the tongue. 2 Active nystatin (Mycostatin) [id number] UNIT/ML suspension SWISH 5 ML BY MOUTH FOUR TIMES A DAY. LEAVE IN MOUTH FOR SEVERAL MINUTES IF POSSIBLE BEFORE SWALLOWING. 4 Active pantoprazole (ProtoNix) 20 MG EC tablet Take 20 mg by mouth Once per day. Active predniSONE (Deltasone) 50 MG tablet Please take one tablet (50 mg) three times leading up to your procedure -- 13 hours, 7 hours, and 1 hour prior to the procedure. 4 Active Social History Tobacco Use Types Packs/Day Years Used Date Smoking Tobacco: Never Smokeless Tobacco: Never Tobacco Cessation:Counseling Given: Not Answered Alcohol Use Standard Drinks/Week Comments Defer 0 (1 standard drink = 0.6 oz pur e alcohol) Comments Unknown Sex and Gender Information Value Date Recorded Sex Assigned at Female 12/08/2023 8:51 AM EDT Legal Sex Female 8:50 AM EDT Gender Identity Female 12/08/2023 8:51 AM EDT Sexual Orientation Straight 12/08/2023 8: 51 AM EDT Last Filed Vital Signs Vital Sign Reading Time Taken Comments Blood Pressure 128/88 12/08/2023 12:18 PM EDT Pulse - - Temperature - - Respiratory Rate - - Oxygen Saturation - - Inhaled Oxygen Concentration - - Weight - - Height - - Body Mass Index - - Plan of Treatment Health Maintenance Due Date Last Done Comments CT Colonography 1957 Colonoscopy 1957 Colorectal Cancer Screening 1957 Dental Oral Exam 1957 Dental Prophylaxis 1957 Dental X-Ray: Full Mouth 1957 Depression Screening 1957 FIT DNA/Cologuard 1957 FIT 1957 FOBT 1957 Lipid Panel 1957 SDOH Screening 1957 Sigmoidoscopy 1957 Meningococcal Vaccine (1 - Risk 2-dose series) 11/30/1959 Alcohol/Substance Use Screening 1969 Hepatitis C Screening 11/30/1975 Hepatitis A Vaccines (1 of 2 - Risk 2-dose series) 1976 Mammogram 1997 RSV Patients and Patients Aged 60 years or older (1 - Risk 50-74 years 1-dose series) 11/30/2007 Hepatitis B Vaccines (3 of 3 - Risk 3-dose series) 01/25/2017 11/30/2016, 11/30/2016, 05/22/2007 Dental X-Ray: Bitewings 12/08/2024 12/08/2023 COVID-19 Vaccine (2024- season) 2025 08/25/2021, 11/17/2020, 10/20/2020 Influenza Vaccine (#1) 2025 , 08/24/2023, 06/21/2022, Additional history exists Tobacco Screening 12/03/2025 12/03/2024 DTaP/Tdap/Td Vaccines (2 - Td or Tdap) 02/02/2033 02/02/2023, 04/29/2011 HIB Vaccines Aged Out 05/22/2007 No longer eligi ble based on patient's age to complete this topic Zoster Vaccines Completed 05/04/2022, 10/06/2021 Pneumococcal Vaccine: 50+ Years Completed 08/24/2023, 08/29/2014, 04/24/2013, Additional history exists HPV Vaccines Aged Out No longer eligi ble based on patient's age to complete this topic IPV Vaccines Aged Out No longer eligi ble based on patient's age to complete this topic Meningococcal B Vaccine Aged Out No l onger eligible based on patient's age to complete this topic RSV under 20 months Aged Out No longe r eligible based on patient's age to complete this topic Rotavirus Vaccines Aged Out No longer eligible based on patient's age to complete this topic Procedures Procedure Name Priority Date/Time Associated Diagnosis Comments BITEWING - SINGLE RADIOGRAPHIC IMAGE Routine 12/08/2023 11:30 AM EDT from Last 3 Months or Most Recently Relevant to Health Maintenance
--- OUTSIDE RECORDS SUMMARY | 2025-08-19 12:09 | XMS_ITS | Encounter Summary ---
Author Organization [facility] Address [address] [place] [address] Phone Care Team Providers Care Resident Care Associate Name Role Phone Jacqui Yanez MD Primary Care Provider Encounter Details Date Type Department Care Team (Late st Contact Info) Description 09/13/2024 Procedure Pass [facility] Cardiac Ultrasound [address] [place] [address] Social History Tobacco Use Types Packs/Day Years Used Date Smoking Tobacco: Never Assessed Education Answer Date Recorded Are you interested in more education? Not on emilee e 01/02/2024 Are you concerned about learning? Not on file 01/02/2024 No 01/02/2024 No 01/02/2024 Digital Access Answer Date Recorded No 01/02/2024 No 01/02/2024 Reliable internet access at home? Not on file 01/02/2024 Device with a working camera? Not on file Intimate Partner Violence Answer Date R ecorded Are you denied basic needs s uch as food, clothing, or medical care? No 08/27/2024 Worried food would run out Not on file 08/27 Are you denied basic needs s uch as food, clothing, or medical care? No 08/27/2024 Relationship Control Not on file 08/27/2024 Comments Unknown Sex and Gender Information Value Date Recorded Sex Assigned at Female 08/19/2023 4:11 PM EST Legal Sex Female 4:01 PM EST Gender Identity Female 08/19/2023 4:11 PM EST Sexual Orientation Straight 08/19/2023 4: 11 PM EST documented as of this encounter Plan of Treatment Upcoming Encounters Date Type Department Care Team (Late st Contact Info) Description 11/19/2025 12:00 PM EDT Telemedicine [facility] Cardiology Clinic at the [facility] [address] [facility], 5th Floor, [address] [place] [address] Aron Garcia MD [address] [facility] [address] [place] [address] [email or web address] documented as of this encounter Visit Diagnoses Not on filedocumented in this encounter Care Teams Resident Care Associate Relationship Specialty Start Date End Date Jacqui Yanez MD [address] [place] [phone] PCP - General Internal Medicine 08/19/23 documented as of this encounter Additional Source Comments The information contained in this document represents components of the legal health record. It is not the complete legal health record.[facility]
--- OUTSIDE RECORDS SUMMARY | 2025-08-19 12:09 | XMS_ITS | Clinical Summary ---
Author Organization [facility], Address [address] [place] [address] [place] [address] Phone Care Team Providers Care Associate Project Manager Name Role Phone Jacqui Yanez MD Primary Care Provider Allergies Active Allergy Reactions Criticality Noted Date Comments Iodinated Contrast Media 12/21/2019 Morphine 12/21/2019 Oxycodone-Acetaminophen 12/21/2019 Acetaminophen-Codeine 12/21/2019 Acetaminophen 12/26/2020 Medications atenolol (TENORMIN) 50 MG tablet Take 50 mg by mouth 1 (one) time each day Active ipratropium HFA (ATROVENT HFA) 17 MCG/ACT inhaler Inhale 2 puffs 4 (four) times a day Active fluticasone (FLONASE) 50 MCG/ACT nasal spray Administer 1 spray into each nostril twice a day Active Eofeney-Qtlnf-U mtricit-TenofAF (GENVOYA PO) Take 1 tablet by mouth 1 (one) time each day Active Darunavir Ethanolate 800 MG tablet Take 800 mg by mouth 1 (one) time each day Active pantoprazole (PROTONIX) 20 MG EC tablet Take 20 mg by mouth 1 (one) time each day Active Active Problems Problem Noted Date Diagnosed Date Chronic kidney disease, stage 2 (mild) 1 Anemia Osteoarthritis Benign essential hypertension Hyperlipidemia Hypokalemia Immunizations Immunization Administration Dates Next Due Hepatitis B 11/30/2016 Influenza Split High Dose Preservative Free IM 1 Influenza TIV (IM) 06/29/2016 Influenza, Quadrivalent, Preservative Free 07/15 Pneumococcal Conjugate 13-Valent 04/24/2013 Pneumococcal Polysaccharide 08/29/2014, 1 Family History Medical History Relation Comments Cancer Father Other Mother numerous unspeci fied cardiac related issues Relation Status Comments Child Father Mother Sibling Social History Tobacco Use Types Packs/Day Years Used Date Smoking Tobacco: Former Cigarettes Alcohol Use Standard Drinks/Week Comments Yes 0 (1 standard drink = 0.6 oz pure alcohol) Alcoholic Drinks/day: Occasional social drink Comments Unknown Sex and Gender Information Value Date Recorded Sex Assigned at Not on file Legal Sex Female 4:35 PM EST Gender Identity Not on file Sexual Orientation Not on file Last Filed Vital Signs Vital Sign Reading Time Taken Comments Blood Pressure 120/70 12/24/2019 8:09 AM EDT Pulse - - Temperature - - Respiratory Rate - - Oxygen Saturation - - Inhaled Oxygen Concentration - - Weight 80.3 kg (177 lb) 10/23/2018 12:00 PM EST Height 162.6 cm (5' 4 ) 10/23/2018 12:00 PM EST Body Mass Index 30.38 10/23/2018 12:00 PM EST Plan of Treatment Health Maintenance Due Date Last Done Comments Breast Cancer Screening 1957 Colorectal Cancer Screening: Annual FOBT 2006 Colorectal Cancer Screening: Colonoscopy 2006 Colorectal Cancer Screening: Sigmoidoscopy 2006 Pneumococcal Vaccine: 50+ Years (4 of 4 - PCV20 or PCV21) 08/29/2019 08/29/2014, 04/24/2013, 06/01/2011 Influenza Vaccine (#1) 2025 9, 06/29/2016, 05/29/2016 Pneumococcal Vaccine: Peds ( 0 to 5 Years) and At-Risk Patients (6 to 49 Years) Discontinued 08/29/2014, 04/24/2013, 06/01/2011 Hepatitis B Vaccine Aged Out 11/30/2016 No longe r eligible based on patient's age to complete this topic Insurance Medicare Medicaid [place] Care Teams Associate Project Manager Relationship Specialty Start Date End Date Jacqui Yanez MD [address] [place] [phone] PCP - General Internal Medicine 12/21/19
--- OUTSIDE RECORDS SUMMARY | 2025-08-19 12:09 | XMS_ITS | Clinical Summary ---
Author Organization [facility] Address [address] [facility] [address] [place] [address] Phone Care Team Providers Care Electric Meter Setter Name Role Phone Jacqui Yanez MD Primary Care Provider Allergies Active Allergy Reactions Criticality Noted Date Comments Acetaminophen-Codeine 02/02/2024 Amlodipine Swelling 01/25/2025 Amlodipine caused leg swelling. Iodinated Contrast Media Hives 02/02/2024 Medications darunavir (PREZISTA) 800 mg Tab Take 800 mg by mouth daily with breakfast. Active elviteg/cob/emtri /tenof alafen (GENVOYA ORAL) Take 1 tablet by mouth daily. Active omeprazole (PRILOSEC) 20 MG capsule Take 20 mg by mouth daily. 2 Active aspirin 81 MG EC tablet Take 81 mg by mouth daily. 2 Active fluticasone propionate (FLONASE) 50 mcg/actuation nasal spray 1 spray by Nasal route daily. Active predniSONE (DELTASONE) 50 MG tabletIndications :Angina pectoris with coronary microvascular dysfunction Please take one tablet (50 mg) three times leading up to your procedure -- 13 hours, 7 hours, and 1 hour prior to the procedure. 3 tablet 4 Active Additional Information Patient not taking.Reported on 01/23/2025 diphenhydrAMINE (BENADRYL) 50 MG capsule Take 50 mg by mouth every 6 (six) hours as needed for itching. Active valsartan-hydroCH LOROthiazide (DIOVAN-HCT) 320-12.5 mg per tablet Take 1 tablet by mouth daily. 90 tablet 3 Active spironolactone (ALDACTONE) 25 MG tabletIndications :Cardiomyopathy, unspecified type,Angina pectoris, unspecified,Dyspn ea on exertion,Angina pectoris with coronary microvascular dysfunction Take 1 tablet (25 mg total) by mouth daily. 90 tablet 3 Active rosuvastatin 40 mg CpSP Take 40 mg by mouth daily. 90 capsule 3 Active isosorbide mononitrate (IMDUR) 60 MG 24 hr tablet Take 1 tablet (60 mg total) by mouth daily. 90 tablet 3 Active dilTIAZem (DILACOR XR) 120 MG 24 hr capsuleIndication s:Chest pain, unspecified type,Coronary artery disease of [place] artery of [place] heart with stable angina pectoris,Endothel ial dysfunction of coronary artery Take 1 capsule (120 mg total) by mouth daily. 90 capsule 3 5 Active Active Problems Problem Noted Date Diagnosed Date Primary hypertension 05/28/2025 Endothelial dysfunction of coronary artery 05/28 Mixed hyperlipidemia 05/28/2025 Angina pectoris with coronary microvascular dysf unction 08/27/2024 Encounters Date Type Department Care Team Description 05/28/2025 12:00 PM EDT Telemedicine [facility] Cardiology Clinic at the [address], 5[address] Floor, [address] [place] [address] Aron Garcia MD Primary hypertension (Primary Dx); Cardiomyopathy, unspecified type; Angina pectoris, unspecified; Dyspnea on exertion; Angina pectoris with coronary microvascular dysfunction; Chest pain, unspecified type; Coronary artery disease of [place] artery of [place] heart with stable angina pectoris; Endothelial dysfunction of coronary artery; Mixed hyperlipidemia from Last 3 Months Social History Tobacco Use Types Packs/Day Years [...] Orientation Straight 08/19/2023 4: 11 PM EST Last Filed Vital Signs Vital Sign Reading Time Taken Comments Blood Pressure 114/68 01/23/2025 11:02 AM EDT Pulse 80 01/23/2025 11:02 AM EDT Temperature 36.4 C (97.5 F) 08/27/2024 8:45 AM EST Respiratory Rate 20 08/27/2024 2:00 PM EST Oxygen Saturation 95% 08/27/2024 2:00 PM EST Inhaled Oxygen Concentration - - Weight 80.3 kg (177 lb) 01/23/2025 11:02 AM EDT Height 162.6 cm (5' 4 ) 12/24/2024 10:42 AM EDT Body Mass Index 30.38 12/24/2024 10:42 AM EDT Plan of Treatment Upcoming Encounters Date Type Department Care Team (Late st Contact Info) Description 11/19/2025 12:00 PM EDT Telemedicine [facility] Cardiology Clinic at the [facility] [address] [facility], 5th Floor, [address] [place] [id number] Aron Garcia MD [address] [address] [email or web address] Health Maintenance Due Date Last Done Comments DEPRESSION SCREENING 1969 SMOKING Hx and SMOKELESS TOBACCO SCREENING 1970 HEPATITIS C SCREENING 11/30/1975 MAMMOGRAM 1997 COLOGUARD 2002 COLONOSCOPY 2002 COLORECTAL CANCER SCREENING 2002 FIT TEST 2002 FOBT 2002 SIGMOIDOSCOPY 2002 VIRTUAL COLONOSCOPY 2002 RSV VACCINE (1 - Risk 50-74 years 1-dose series) 11/30/2007 OSTEOPOROSIS SCREENING INITIAL (ONE-TIME) 2022 PNEUMOCOCCAL VACCINES (50+ years) (2 of 2 - PCV) 08/24/2024 08/24/2023 INFLUENZA VACCINE (#1) 2025 , 06/21/2022, 06/06/2021, Additional history exists COVID-19 VACCINE ( season) 2025 08/25/2021, 11/17/2020, 10/20/2020 BLOOD PRESSURE 07/26/2025 01/23/2025 CREATININE LEVEL 09/19/2025 09/19/2024, 07/25/2024 LIPID PANEL 09/19/2025 09/19/2024 POTASSIUM LEVEL 09/19/2025 09/19/2024, 07/25/2024 SCREENING FOR DIABETES 09/19/2027 09/19/2024 Adult Td,Tdap Booster 02/02/2033 02/02/2023 ZOSTER VACCINES Completed 05/04/2022, 10/06/2021 HEPATITIS A VACCINES Aged Out No long er eligible based on patient's age to complete this topic HIB VACCINES Aged Out No longer eligi ble based on patient's age to complete this topic MENINGOCOCCAL VACCINES (ACWY) Aged Out No longer eligible based on patient's age to complete this topic MENINGOCOCCAL VACCINES (B) Aged Out N o longer eligible based on patient's age to complete this topic Medical Devices Not on file Procedures Procedure Name Priority Date/Time Associated Diagnosis Comments LIPID PANEL Routine 09/19/2024 12:57 PM EST Coronary artery disease of [place] artery of [place] heart with stable angina pectoris BASIC METABOLIC PANEL (BMP) Routine 09/19/2024 12:57 PM EST Cardiomyopathy, unspecified type Angina pectoris, unspecified Dyspnea on exertion Angina pectoris with coronary microvascular dysfunction from Last 3 Months or Most Recently Relevant to Health Maintenance Results * (ABNORMAL) Lipid panel (09/19/2024 12:57 PM EST) HDL 62 35 - 100 mg/dL [facility] CHOLESTEROL 191 <200 mg/dL [facility] TRIGLYCERIDES 171(H) 40 - 150 mg/dL [facility] LDL 95 50 - 129 mg/dL [facility] CARDIAC RISK RATIO 3.1 0.0 - 5.0 [facility] NON-HDL CHOLESTEROL 129 mg/dL [facility] Comment:NCEP ATP III guideli katlyn suggest a non-HDL cholesterol goal 30 mg/dl higher than the patient-specific LDL goal. 09/19/2024 12:5 7 PM EST 09/19/2024 4:06 PM EST us Marianne Monte MD LAB BLOOD BKR ORDERABLES Fi nal Result Performing Organization Address City/[facility]/ZIP Co de Phone Number [address] [phone] * (ABNORMAL) Basic metabolic panel (09/19/2024 12:57 PM EST) SODIUM 141 135 - 145 mmol/L [facility] POTASSIUM 4.2 3.4 - 5.0 mmol/L [facility] CHLORIDE 101 98 - 108 mmol/L [facility] CO2 30 23 - 32 mmol/L [facility] BUN 20 8 - 25 mg/dL [facility] CREATININE 0.80 0.50 - 1.00 mg/dL [facility] GLUCOSE 66(L) 70 - 110 mg/dL [facility] CALCIUM 9.7 8.5 - 10.5 mg/dL [facility] EGFR 81 >59 mL/min/1.7 3m2 [facility] Comment:Estimated glomerular filtration rate calculated using the CKD-EPI refit equation. ANION GAP 10 3 - 17 mmol/L [facility] 09/19/2024 12:5 7 PM EST 09/19/2024 4:06 PM EST us Mirna Bhakta CNP LAB BLOOD BKR ORDERABLES Final Result Performing Organization Address City/[facility]/ZIP Co de Phone Number [address] [phone] from Last 3 Months or Most Recently Relevant to Health Maintenance Insurance MEDICARE PART A & B [employer] SUPPLEMENT MEDICARE PART A & B [employer] SUPPLEMENT MEDICARE PART A & B [employer] MEDEX SUPPLEMENT MEDICARE PART A & B [employer] MEDEX SUPPLEMENT MEDICARE PART A & B [employer] MEDEX SUPPLEMENT MEDICARE PART A & B [employer] MEDEX SUPPLEMENT Advance Directives For more information, please contact: [phone] (9AM - 5PM [facility], Tuesday-Tuesday) * Full Code (Latest Code Status on File) Date Activated Date Inactivated Comments 08/27/2024 12:21 PM Question Answer Comments Code Status Confirmed With: Patient Code Status Communicated To: Inpatient Attending Care Teams Electric Meter Setter Relationship Specialty Start Date End Date Jacqui Yanez MD [address] [place] [phone] PCP - General Internal Medicine 08/19/23 Additional Source Comments The information contained in this document represents components of the legal health record. It is not the complete legal health record.[facility]
--- OUTSIDE RECORDS SUMMARY | 2025-08-19 12:09 | XMS_ITS | Encounter Summary ---
Author Organization [facility] Address [address] [place] [address] Phone Care Team Providers Care Cpc Coder Name Role Phone Jacqui Yanez MD Primary Care Provider Encounter Details Date Type Department Care Team ([facility] st Contact Info) Description 09/19/2024 Procedure Pass [facility] Holter Lab [address] [facility], 5th Floor, [address] [place] [address] Social History Tobacco Use Types Packs/Day Years [...] Info) Description 11/19/2025 12:00 PM EDT Telemedicine [facility] Cardiology Clinic at the [facility] [address] [facility], 5th Floor, [address] [place] [address] Aron Garcia MD [address] [address] [email or web address] documented as of this encounter Visit Diagnoses Not on filedocumented in this encounter Care Teams Cpc Coder Relationship Specialty Start Date End Date Jacqui Yanez MD [address] [place] [phone] PCP - General Internal Medicine 08/19/23 documented as of this encounter Additional Source Comments The information contained in this document represents components of the legal health record. It is not the complete legal health record.[facility]
--- OUTSIDE RECORDS SUMMARY | 2025-08-19 12:09 | XMS_ITS | Encounter Summary ---
Author Organization [facility] Address [address] [place] [address] Phone Care Team Providers Care Intensive Care Medicine Specialist Name Role Phone Jacqui Yanez MD Primary Care Provider Encounter Details Date Type Department Care Team (Late st Contact Info) Description 08/27/2024 Procedure Pass [facility] Cardiac Dry Wall Installations Mechanic [address] [facility], [address], [address] [place] [phone] Social History Tobacco Use Types Packs/Day Years [...] Info) Description 11/19/2025 12:00 PM EDT Telemedicine [facility] Cardiology Clinic at the [facility] [address] [facility], 5th Floor, [address] [place] [address] Aron Garcia MD [address] [facility] [address] [place] [address] [email or web address] documented as of this encounter Visit Diagnoses Not on filedocumented in this encounter Care Teams Intensive Care Medicine Specialist Relationship Specialty Start Date End Date Jacqui Yanez MD [address] [place] [phone] PCP - General Internal Medicine 08/19/23 documented as of this encounter Additional Source Comments The information contained in this document represents components of the legal health record. It is not the complete legal health record.[facility]
--- NOTE | 2025-08-19 13:13 | PC.NURSE ---
patient up to use commode to provide urine sample. medicated w/ tylenol for headache. resting quietly in room. awaiting lab results/dispo. remains on 2L nasal cannula
[2025-08-19 13:30] LABS: Appearance Urine Clear; Glucose Urine UA 250 mg/dL (Negative); PH 5.0 (5.0-9.0); Specific Gravity - Urine >= 1.030 (1.005-1.025); UMIC TRIGGER UACC YES
[2025-08-19 13:35] LABS: Troponin-I High Sensitivity 4.3 ng/L (<3.5-17.0)
--- NOTE | 2025-08-19 13:48 | PM.IMHP ---
History of Present Illness Date of Service: 08/19/25 Chief Complaint: Shortness of breath, dyspnea on exertion 69-year-old female with PMH of asthma (not on home O?), HIV with undetectable viral load on ART, hypertension, hyperlipidemia, tachycardia, GERD, CAD s/p stent 2 years ago, and reported history of valvular stenosis (valve unspecified) who presents with acute systemic and respiratory symptoms. She was evaluated at urgent care on Tuesday for URI symptoms. Viral panel was negative, no chest Xray was obtained, and she was started on doxycycline and prednisone. 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 She did not fall, though a brief syncopal episode is possible. During the episode, she had diarrhea without vomiting. She reports shortness of breath with pleuritic chest pain that worsens with coughing and deep inspiration. She endorses fatigue, chills, and productive cough with green sputum. She denies worsening chest pain or dyspnea prior to this episode and states these symptoms do not resemble her prior cardiac events requiring stent placement. She denies recent travel, sick contacts, or recent procedures. EMS noted an oxygen saturation of 91% on room air, and she was placed on 2 L nasal cannula, after noting to be hypoxic to the 87%on RA. Workup in ED - sepsis workup -ve except Flu A , elevated CRP CTA not feasible as pt has stated allergy to contrast , D-dimer -ve, inf etiology , Vlac, pro-neda -ve, troponin . ED course: Solumedrol, Ceftraixone, Pt being admitted for further medical mx of AHRF due to Flu A in the flu season in a pt with multiple medical comorbidities under observation after failing OP steroid and abx mx. Review of Systems Review of Systems: Yes all other systems are reviewed and are negative [facility] Medical History Asthma Hyperlipidemia HTN (hypertension) CAD (coronary artery disease) HIV (human immunodeficiency virus infection) GERD (gastroesophageal reflux disease) Social History (Updated 08/19/25 @ 09:46 by Mary Martin DO) Patient Tobacco Use Status: Never used Tobacco Smoked in Last 30 Days: No Advance Directives: No Advance Directives Information Provided: Yes Meds Allergies Allergy/AdvReac Type Severity Reaction Status Date / Time codeine AdvReac Itching Verified 08/19/25 09:26 Iodinated Contrast Media AdvReac Itching Verified 08/19/25 09:26 (Contrast Dye) morphine AdvReac Itching Verified 08/19/25 09:26 Home Medications ?Medication ?Instructions ?Recorded ?Confirmed ?Last Taken ?Type albuterol sulfate 90 mcg/actuation 2 puff inhalation Q4H PRN wheezing 08/19/25 08/19/25 Unknown History aerosol inhaler citrulline 600 mg capsule 1,200 mg PO DAILY@1800 08/19/25 08/19/25 08/19/25 History darunavir 800 mg tablet 800 mg PO DAILY@1800 08/19/25 08/19/25 08/19/25 History diltiazem HCl 120 mg 120 mg PO DAILY@1800 08/19/25 08/19/25 08/19/25 History capsule,extended release 24 hr, controlled (DILT-XR) doxycycline hyclate 100 mg tablet 100 mg PO BID@0600,1800 08/19/25 08/19/25 08/19/25 History elviteg 150 mg-cob 150 mg-emtricit 1 tab PO DAILY@1800 08/19/25 08/19/25 08/19/25 History 200 mg-tenofo alafenam 10 mg tablet (Genvoya) isosorbide mononitrate 60 mg 60 mg PO DAILY@1800 08/19/25 08/19/25 08/19/25 History tablet,extended release 24 hr prednisone 20 mg tablet 40 mg PO DAILY@0600 08/19/25 08/19/25 08/19/25 History rosuvastatin 40 mg tablet 40 mg PO DAILY@1800 08/19/25 08/19/25 08/19/25 History spironolactone 25 mg tablet 25 mg PO DAILY@0600 08/19/25 08/19/25 08/19/25 History valsartan 320 1 tab PO DAILY@1800 08/19/25 08/19/25 08/19/25 History mg-hydrochlorothiazide 12.5 mg tablet Physical Exam Vital Signs and Narrative: Vital Signs: Last Vital Signs Temp 97.8 F 08/19/25 09:18 Pulse 88 08/19/25 12:42 Resp 20 08/19/25 12:42 BP 129/59 L 08/19/25 12:42 Pulse Ox 92 08/19/25 12:42 O2 Del Method Nasal Cannula 08/19/25 12:42 O2 Flow Rate 2 08/19/25 12:42 Oxygen Flow Rate 2 08/19/25 09:18 BMI result Body Mass Index 27.3 General:?Ill-appearing female, alert, in mild respiratory distress. Cardiovascular:?Regular rate and rhythm; murmurs not documented. Respiratory: Sat >94% on 1L O2, mild?increased work of breathing; cough present. Breath sounds and wheezing/rales -ve at the time of examinat. Abdomen:?Soft, non-tender, non-distended. Neurologic:?Alert and oriented; no focal deficits noted. Results Labs 08/19/25 09:47 08/19/25 09:47 Labs: Laboratory Results - last 24 hr 08/19/25 08/19/25 08/19/25 09:47 09:53 10:13 MCV 96.3 MCH 32.3 MCHC 33.6 RDW 13.4 Plt Count 198 MPV 10.3 Immature Gran % (Auto) 0.8 H Neut % (Auto) 80.0 H Lymph % (Auto) 6.4 L [place] % (Auto) 12.6 H Eos % (Auto) 0.0 Baso % (Auto) 0.2 Lymph # (Auto) 0.8 L [place] # (Auto) 1.7 H Eos # (Auto) 0.0 Baso # (Auto) 0.0 Abs Immat Gran (auto) 0.10 H Absolute Neuts (auto) 10.6 H Absolute Nucleated RBC 0.000 Nucleated RBC % (auto) 0.0 Smear Tech's Comments VERIFIED D-Dimer High Sensitivty < 150 VBG pH 7.38 VBG pCO2 42 VBG pO2 53 VBG HCO3 25 VBG O2 Saturation 81.0 VBG Base Excess 0.1 Anion Gap 15 Estim Creat Clear Calc 45.1 Estimated GFR 46 Random Glucose 130 H Lactic Acid 1.0 Calcium 9.4 Magnesium 1.9 Total Bilirubin 0.3 Direct Bilirubin 0.1 AST 36 H ALT 26 Alkaline Phosphatase 71 Troponin I High Sens 3.8 C-Reactive Protein 2.62 H Total Protein 7.6 Albumin 4.6 Lipase 12 Procalcitonin 0.04 Urine Color Urine Appearance Urine pH Ur Specific [place] Urine Protein Urine Glucose (UA) Urine Ketones Urine Blood Urine Nitrite Ur Leukocyte Esterase Influenza Type A (PCR) POSITIVE A Influenza Type B (PCR) NEGATIVE RSV RNA Qual (PCR) NEGATIVE SARS-CoV-2 RNA (RT-PCR) NEGATIVE 08/19/25 08/19/25 12:39 12:55 MCV MCH MCHC RDW Plt Count MPV Immature Gran % (Auto) Neut % (Auto) Lymph % (Auto) [place] % (Auto) Eos % (Auto) Baso % (Auto) Lymph # (Auto) [place] # (Auto) Eos # (Auto) Baso # (Auto) Abs Immat Gran (auto) Absolute Neuts (auto) Absolute Nucleated RBC Nucleated RBC % (auto) Smear Tech's Comments D-Dimer High Sensitivty VBG pH VBG pCO2 VBG pO2 VBG HCO3 VBG O2 Saturation VBG Base Excess Anion Gap Estim Creat Clear Calc Estimated GFR Random Glucose Lactic Acid Calcium Magnesium Total Bilirubin Direct Bilirubin AST ALT Alkaline Phosphatase Troponin I High Sens 4.3 C-Reactive Protein Total Protein Albumin Lipase Procalcitonin Urine Color Yellow Urine Appearance Clear Urine pH 5.0 Ur Specific [place] >= 1.030 H Urine Protein 30 (1+) H Urine Glucose (UA) 250 H Urine Ketones Trace Urine Blood Negative Urine Nitrite Negative Ur Leukocyte Esterase Negative Influenza Type A (PCR) Influenza Type B (PCR) RSV RNA Qual (PCR) SARS-CoV-2 RNA (RT-PCR) Imaging Radiologist's Impressions: Impressions Chest CT 08/19/25 10:48 IMPRESSION: 1. Mild bronchial wall thickening and partial opacification in the lower lobes, compatible with bronchitis. 2. Severe coronary arterial calcification. Electronically signed by: Kobe Maria MD 08/19/2025 11:16 AM [facility] and Plan (1) Influenza A: Status: Acute 69-year-old female with PMH of asthma (not on home O?), HIV with undetectable viral load on ART, hypertension, hyperlipidemia, tachycardia, GERD, CAD s/p stent 2 years ago, and reported history of valvular stenosis (valve unspecified) who presents with SOB/ARDON and syncope in Hospital cafeteria. She is being admitted for AHRF 2/2 Flu A in a pt who failed OP mx (steroid + abx). # AHRF 2/2 Flu A in a pt who failed OP mx (steroid + abx) Acute Hypoxic Respiratory Symptoms / Suspected Pulmonary Infection Presents with cough productive of green sputum, chills, fatigue, pleuritic chest pain, and new hypoxia. Recently treated empirically with doxycycline and prednisone without imaging. On 1 L NC for SpO2 94 Recent negative viral panel Differential includes pneumonia, bronchitis, asthma exacerbation Cont Ceftriaxone tamiflu 5 day course for flu A f/up sepsis workup pendi ng # Asthma Cont home nebs and rx for exacerbation as above # ASTHMA History of asthma with concern for exacerbation in the setting of viral infection and respiratory symptoms. -Continue home nebulizer treatments -Management as part of respiratory failure treatment above #HIV INFECTION Known HIV with undetectable viral load on antiretroviral therapy. -Continue home antiretroviral medications #HYPERTENSION Chronic condition. -Continue home antihypertensive medications #CORONARY ARTERY DISEASE STATUS POST STENT History of coronary artery disease with prior stent placement. -Continue home cardiac medications #HYPERLIPIDEMIA Chronic condition. -Continue home lipid-lowering therapy #GASTROESOPHAGEAL REFLUX DISEASE Chronic condition. -Continue home medications #HISTORY OF VALVULAR STENOSIS Reported history with valve unspecified. -Recommend outpatient follow-up with cardiology or primary care #DEEP VEIN THROMBOSIS PROPHYLAXIS -Initiate enoxaparin for prophylaxis Full code - confirmed with pt, daughter is HCP The patient meets criteria for admission under observation due to acute hypoxic respiratory failure requiring supplemental oxygen, recent syncope, multiple comorbidities, and failure of outpatient therapy. Close monitoring is required to ensure clinical improvement and stability. Anticipate discharge as early as tomorrow if oxygen requirement resolves, symptoms improve, and no additional complications are identified. Follow-up/Disposition: Continue observation-level care with reassessment of respiratory status and oxygen needs. Plan for discharge home if clinically improving and stable within 24 hours. This note is constructed using voice recognition software. While every effort has been made to ensure accuracy, extruding press adjuster errors may have been included. Quality Stroke Does the patient have a stroke diagnosis?: No VTE Prior VTE?: No VTE Risk Level:: Medical - moderate - high VTE Device Contraindication: N/A - Device Ordered VTE Drug Contraindication: N/A - Med Ordered
--- NOTE | 2025-08-19 14:26 | PHA.MEDREC ---
Addendum entered by Shanika Neely RP 08/19/25 14:38: Reviewed by [facility] Original Note: Pharmacy Consult ? Medication Reconciliation Pharmacy has completed the medication reconciliation. Spoke with pt and she confirmed her medications. Pt takes her medications strictly every day @0600 & 1800 and she started taking Prednisone and Doxycycline regimens on Friday 08/17.
[2025-08-19 16:23] LABS: Magnesium 1.8 mg/dL (1.6-2.6)
[2025-08-19 16:29] LABS: Troponin-I High Sensitivity 6.7 ng/L (<3.5-17.0)
[2025-08-19] MEDS: dilTIAZem HCL CD 120 MG CAP.ER.DEG PO (17:59)
[2025-08-19] MEDS: 0.9 % Sodium Chloride Flush 3 ML SYRINGE IVFLUSH (17:59)
--- NOTE | 2025-08-19 19:00 | PC.NURSE ---
Report taken from Kurt RN assumed care of pt at this time. A&Ox3 skin pwd respirations even unlabored. No s/s resp distress on 2l O2 via NC. Offers no complaints. Awaiting bed assignment for admission. Previous RN contacted pharmacy for scheduled med that are unavailable in pyxis- meds still not delivered. Second tiger connect sent by this RN, awaiting meds for administration.
--- NOTE | 2025-08-19 19:00 | HO.NURTONUR ---
Coming to ED with shortness of breath and syncope at work. Hx asthma. Admitted for Flu A. Hypoxic at 87% on room air at rest. On 2L NC. 20G right AC. Ambulates with portable O2. Eats independently.
[2025-08-19] MEDS: Elviteg/Cobi/Emtric/Tenofo Ala 150/150/200/10 TABLET 1 TAB PO (20:03)
[2025-08-20] VITALS (8 sets, daily range): BP systolic 119–140; BP diastolic 58–67; PULSE 62–80; RESP 14–18; TEMP 36.4–37; O2SAT 92–94; BMI 27.4
[2025-08-20] MEDS: 0.9 % Sodium Chloride Flush 3 ML SYRINGE IVFLUSH ×4 (00:59→20:19)
--- NOTE | 2025-08-20 05:00 | ECG_ITS ---
Test Reason : hypoxia Blood Pressure : */* mmHG Vent. Rate : 78 BPM Atrial Rate : 78 BPM P-R Int : 124 ms QRS Dur : 86 ms QT Int : 372 ms P-R-T Axes : 27 37 55 degrees QTcB Int : 424 ms Normal sinus rhythm Normal ECG When compared with ECG of 19-Aug-2025 09:47, No significant change was found Referred By: Yoanna Sanchez Electronically Signed By: RONY DWYER MD
[2025-08-20 06:08] LABS: MANUAL DIFF FLAG NO
[2025-08-20 06:17] LABS: Hematocrit 34.3 % (37.0-47.0); Hemoglobin 11.3 g/dl (12.0-16.0); Imm Gran Abs Auto 0.10 X10*3/uL (0.00-0.03); Imm Gran Pct Auto 0.8 % (0.0-0.4); Lymphocytes Absolute Auto 1.4 X10*3/uL (1.2-4.9); Mean Corpuscular HGB Conc 32.9 g/dl (31.0-35.0); Mean Corpuscular Hemoglobin 31.9 pg (27.0-33.0); Mean Corpuscular Volume 96.9 fL (80.0-98.0); NRBC Abs Auto 0.000 X10*3/uL (0.0-0.012); NRBC Pct Auto 0.0 /100WBC (0.0-0.2); Platelet Count 191 X10*3/uL (160-400); Red Blood Count 3.54 X10*6/uL (4.20-5.50); White Blood Count 12.2 X10*3/uL (4.8-10.8)
[2025-08-20 06:39] LABS: Alanine Aminotransferase 26 U/L (0-31); Albumin Level 3.8 g/dL (3.5-5.0); Alkaline Phosphatase 55 U/L (39-117); Anion Gap 12 (12-20); Aspartate Amino Transferase 31 U/L (5-31); Blood Urea Nitrogen 37 mg/dL (9-16); Calcium 9.1 mg/dL (8.4-10.2); Carbon Dioxide 24 mmol/L (22-29); Chloride 105 mmol/L (96-108); Creatinine Clr Calc Pharmacy 48.4; Estimated Glomerular Filt Rate 50; Potassium 5.1 mmol/L (3.3-5.1); Sodium 136 mmol/L (135-145); Total Protein 6.4 g/dL (6.5-8.0)
--- NOTE | 2025-08-20 07:15 | P.PNIM_ITS ---
Subjective Subjective Date of Service: 08/20/25 Interval History: Patient continues to be dyspneic and rhonchus requiring further O2 support Saturating greater than 92% on 2 L O2 Review of Systems Review of Systems: Yes all other systems are reviewed and are negative Physical Exam 2 Vital Signs: Vital Signs: Last Vital Signs Temp 98.1 F 08/20/25 03:15 Pulse 71 08/20/25 03:15 Resp 14 08/20/25 03:15 BP 140/67 H 08/20/25 03:15 Pulse Ox 94 08/20/25 03:15 O2 Del Method Nasal Cannula 08/20/25 03:15 O2 Flow Rate 2 08/20/25 03:15 Oxygen Flow Rate 2 08/19/25 09:18 BMI result Body Mass Index 27.4 Appearance: Alert. Oriented X3. Mild acute distress. CVS: Normal heart rate and rhythm. Pulses normal. Respiratory: No respiratory distress. Breath sounds coarse diminished and wheezes throughout Abdomen: Soft and nontender. Neuro: No motor deficit noted grossly Objective Data Active Medications Acetaminophen (Acetaminophen 325 Mg Tablet) 650 mg PO Q6H PRN PRN Reason: Pain, Mild 1-3,fever,headache Last Admin: 08/20/25 00:56 Dose: 650 mg Documented By: OFELIA Albuterol Sulfate (Albuterol Sulfate 90 Mcg 8 Gm Inhaler) 2 puff INHALE Q4H PRN PRN Reason: Wheezing Albuterol/Ipratropium (Albuterol/Iprat 2.5/0.5mg 3 Ml Ampul.Neb) 3 ml INHALE Q4H PRN PRN Reason: Shortness of Breath/Wheezing Atorvastatin Calcium (Atorvastatin Calcium 80 Mg Tablet) 40 mg PO DAILY@1800 [facility] Last Admin: 08/19/25 17:59 Dose: 40 mg Documented By: SEVIGBisi Benzonatate (Benzonatate 100 Mg Capsule) 100 mg PO TID PRN PRN Reason: Cough Calcium Carbonate (Calcium Carbonate 750 Mg Tab.Chew) 750 mg PO Q4H PRN PRN Reason: Heartburn Darunavir (Darunavir Ethanolate 800 Mg Tablet) 800 mg PO DAILY@1800 ILEANA Last Admin: 08/19/25 20:03 Dose: 800 mg Documented By: JANEL Diltiazem HCl (Diltiazem Hcl Cd 120 Mg Cap.Er.Deg) 120 mg PO DAILY@1800 [facility]; Protocol Last Admin: 08/19/25 17:59 Dose: 120 mg Documented By: MARCO ANTONIO Doxycycline Monohydrate (Doxycycline Monohydrate 100 Mg Capsule) 100 mg PO BID@0600,1800 [facility] Last Admin: 08/20/25 05:12 Dose: 100 mg Documented By: OFELIA Elvitegravir/Cobicis/Emtricit/Tenof (Elviteg/Radha/Emtric/Tenofo Ala 150/150/200/10 Tablet) 1 tab PO DAILY@1800 [facility] Last Admin: 08/19/25 20:03 Dose: 1 tab Documented By: JANEL Enoxaparin Sodium (Enoxaparin Sodium 40 Mg/0.4 Ml Syringe) 40 mg SUBCUT Q24H [facility] Last Admin: 08/19/25 14:39 Dose: 40 mg Documented By: MARCO ANTONIO Ibuprofen (Ibuprofen 400 Mg Tablet) 400 mg PO Q6H PRN PRN Reason: Fever or Pain, Mild (Pain Scale 1-3) Isosorbide Mononitrate (Isosorbide Mononitrate 60 Mg Tab.Er.24h) 60 mg PO DAILY@1800 [facility]; Protocol Last Admin: 08/19/25 20:03 Dose: 60 mg Documented By: JANEL Magnesium Hydroxide (Milk Of Magnesia 30 Ml Oral.Susp) 30 ml PO DAILY PRN PRN Reason: Constipation Melatonin (Melatonin 3 Mg Tablet) 6 mg PO BEDTIME PRN PRN Reason: Insomnia Ondansetron HCl (Ondansetron Hcl 4 Mg/2 Ml Vial) 4 mg IVPUSH Q8H PRN PRN Reason: Nausea and Vomiting Oseltamivir Phosphate (Oseltamivir Phosphate 30 Mg Capsule) 30 mg PO Q12H [facility] Stop: 08/23/25 23:01 Last Admin: 08/20/25 00:56 Dose: 30 mg Documented By: OFELIA Prednisone (Prednisone 20 Mg Tablet) 40 mg PO DAILY@0600 [facility] Last Admin: 08/20/25 05:12 Dose: 40 mg Documented By: OFELIA Sodium Chloride (0.9 % Sodium Chloride Flush 3 Ml Syringe) 3 ml IVFLUSH QSHIFT [facility] Last Admin: 08/20/25 00:59 Dose: 3 ml Documented By: OFELIA Spironolactone (Spironolactone 25 Mg Tablet) 25 mg PO DAILY@0600 [facility]; Protocol Last Admin: 08/20/25 05:12 Dose: 25 mg Documented By: OFELIA Valsartan (Valsartan 320 Mg Tablet) 320 mg PO DAILY@1800 I[facility] Last Admin: 08/19/25 20:03 Dose: 320 mg Documented By: ABLIAI Labs 08/20/25 06:03 08/20/25 06:03 Labs: Laboratory Results - last 24 hr 08/19/25 08/19/25 08/19/25 09:47 09:53 10:13 MCV 96.3 MCH 32.3 MCHC 33.6 RDW 13.4 Plt Count 198 MPV 10.3 Immature Gran % (Auto) 0.8 H Neut % (Auto) 80.0 H Lymph % (Auto) 6.4 L [place] % (Auto) 12.6 H Eos % (Auto) 0.0 Baso % (Auto) 0.2 Lymph # (Auto) 0.8 L [place] # (Auto) 1.7 H Eos # (Auto) 0.0 Baso # (Auto) 0.0 Abs Immat Gran (auto) 0.10 H Absolute Neuts (auto) 10.6 H Absolute Nucleated RBC 0.000 Nucleated RBC % (auto) 0.0 Smear Tech's Comments VERIFIED D-Dimer High Sensitivty < 150 VBG pH 7.38 VBG pCO2 42 VBG pO2 53 VBG HCO3 25 VBG O2 Saturation 81.0 VBG Base Excess 0.1 Anion Gap 15 Estim Creat Clear Calc 45.1 Estimated GFR 46 Random Glucose 130 H Lactic Acid 1.0 Calcium 9.4 Magnesium 1.9 Total Bilirubin 0.3 Direct Bilirubin 0.1 AST 36 H ALT 26 Alkaline Phosphatase 71 Troponin I High Sens 3.8 C-Reactive Protein 2.62 H Total Protein 7.6 Albumin 4.6 Lipase 12 Procalcitonin 0.04 Urine Color Urine Appearance Urine pH Ur Specific [place] Urine Protein Urine Glucose (UA) Urine Ketones Urine Blood Urine Nitrite Ur Leukocyte Esterase Urine RBC Urine WBC Ur Squamous Epith Cells Urine Bacteria Hyaline Casts Granular Casts Influenza Type A (PCR) POSITIVE A Influenza Type B (PCR) NEGATIVE RSV RNA Qual (PCR) NEGATIVE SARS-CoV-2 RNA (RT-PCR) NEGATIVE 08/19/25 08/19/25 08/19/25 12:39 12:55 16:03 MCV MCH MCHC RDW Plt Count MPV Immature Gran % (Auto) Neut % (Auto) Lymph % (Auto) [place] % (Auto) Eos % (Auto) Baso % (Auto) Lymph # (Auto) [place] # (Auto) Eos # (Auto) Baso # (Auto) Abs Immat Gran (auto) Absolute Neuts (auto) Absolute Nucleated RBC Nucleated RBC % (auto) Smear Tech's Comments D-Dimer High Sensitivty VBG pH VBG pCO2 VBG pO2 VBG HCO3 VBG O2 Saturation VBG Base Excess Anion Gap Estim Creat Clear Calc Estimated GFR Random Glucose Lactic Acid Calcium Magnesium 1.8 Total Bilirubin Direct Bilirubin AST ALT Alkaline Phosphatase Troponin I High Sens 4.3 6.7 D C-Reactive Protein Total Protein Albumin Lipase Procalcitonin Urine Color Yellow Urine Appearance Clear Urine pH 5.0 Ur Specific [place] >= 1.030 H Urine Protein 30 (1+) H Urine Glucose (UA) 250 H Urine Ketones Trace Urine Blood Negative Urine Nitrite Negative Ur Leukocyte Esterase Negative Urine RBC 0-2 Urine WBC 0-5 Ur Squamous Epith Cells 3-5 Urine Bacteria None Seen Hyaline Casts 11-20 Granular Casts Present Influenza Type A (PCR) Influenza Type B (PCR) RSV RNA Qual (PCR) SARS-CoV-2 RNA (RT-PCR) 08/20/25 06:03 MCV 96.9 MCH 31.9 MCHC 32.9 RDW 13.6 Plt Count 191 MPV 10.4 Immature Gran % (Auto) 0.8 H Neut % (Auto) 79.1 H Lymph % (Auto) 11.1 L [place] % (Auto) 8.9 Eos % (Auto) 0.0 Baso % (Auto) 0.1 Lymph # (Auto) 1.4 [place] # (Auto) 1.1 Eos # (Auto) 0.0 Baso # (Auto) 0.0 Abs Immat Gran (auto) 0.10 H Absolute Neuts (auto) 9.6 H Absolute Nucleated RBC 0.000 Nucleated RBC % (auto) 0.0 Smear Tech's Comments D-Dimer High Sensitivty VBG pH VBG pCO2 VBG pO2 VBG HCO3 VBG O2 Saturation VBG Base Excess Anion Gap 12 Estim Creat Clear Calc 48.4 Estimated GFR 50 Random Glucose 142 H Lactic Acid Calcium 9.1 Magnesium Total Bilirubin 0.3 Direct Bilirubin AST 31 ALT 26 Alkaline Phosphatase 55 Troponin I High Sens C-Reactive Protein Total Protein 6.4 L Albumin 3.8 Lipase Procalcitonin Urine Color Urine Appearance Urine pH Ur Specific [place] Urine Protein Urine Glucose (UA) Urine Ketones Urine Blood Urine Nitrite Ur Leukocyte Esterase Urine RBC Urine WBC Ur Squamous Epith Cells Urine Bacteria Hyaline Casts Granular Casts Influenza Type A (PCR) Influenza Type B (PCR) RSV RNA Qual (PCR) SARS-CoV-2 RNA (RT-PCR) Assessment and Plan (1) Influenza A: Status: Acute Plan 69-year-old female with PMH of asthma (not on home O?), HIV with undetectable viral load on ART, hypertension, hyperlipidemia, tachycardia, GERD, CAD s/p stent 2 years ago, and reported history of valvular stenosis (valve unspecified) who presents with SOB/ARDON and syncope in Hospital cafeteria. She is being admitted for AHRF 2/2 Flu A in a pt who failed OP mx (steroid + abx). # AHRF 2/2 Flu A in a pt who failed OP mx (steroid + abx) Acute Hypoxic Respiratory Symptoms likely due to flu,bronchitis, asthma exacerbation Patient is hypoxic requiring 2 L O2 to maintain greater than 92% at this time, has been afebrile, without leukocytosis , hemodynamically stable. Hence the rationale against using antibiotics inappropriately in a patient with just flu without objective pneumonia tamiflu 5 day course for flu A, continue home steroids for asthma exacerbation f/up sepsis workup pending, # Asthma Cont home nebs and rx for exacerbation as above # ASTHMA History of asthma with concern for exacerbation in the setting of viral infection and respiratory symptoms. -Continue home nebulizer treatments - Management as part of respiratory failure treatment above #HIV INFECTION Known HIV with undetectable viral load on antiretroviral therapy. -Continue home antiretroviral medications #HYPERTENSION Chronic condition. -Continue home antihypertensive medications #CORONARY ARTERY DISEASE STATUS POST STENT History of coronary artery disease with prior stent placement. -Continue home cardiac medications #HYPERLIPIDEMIA Chronic condition. -Continue home lipid-lowering therapy #GASTROESOPHAGEAL REFLUX DISEASE Chronic condition. -Continue home medications #HISTORY OF VALVULAR STENOSIS Reported history with valve unspecified. - Recommend outpatient follow-up with cardiology or primary care #DEEP VEIN THROMBOSIS PROPHYLAXIS -Initiate enoxaparin for prophylaxis Full code - confirmed with pt, daughter is HCP Follow-up/Disposition: Continue observation-level care with reassessment of respiratory status and oxygen needs. Plan for discharge home if clinically improving and stable within 24 hours. This note is constructed using voice recognition software. While every effort has been made to ensure accuracy, city planner errors may have been included. Quality Stroke Does the patient have a stroke diagnosis?: No VTE Prior VTE?: No VTE Risk Level:: Medical - moderate - high VTE Device Contraindication: N/A - Device Ordered VTE Drug Contraindication: N/A - Med Ordered
--- NOTE | 2025-08-20 14:03 | MHC.CM.PN ---
Rosa [birth year] Female FLU-A + Lives with her She is independent with all functional mobility. A copy of her HCP has been requested [facility] Home self care. She has arranged for her spouse to provide transportation home.
[2025-08-20] MEDS: dilTIAZem HCL CD 120 MG CAP.ER.DEG PO (18:04)
[2025-08-21 03:19] VITALS: BP 120/60; PULSE 62; RESP 16; TEMP 36.8; O2SAT 93
[2025-08-21 05:54] LABS: MANUAL DIFF FLAG NO
[2025-08-21 05:56] LABS: Hematocrit 37.6 % (37.0-47.0); Hemoglobin 12.3 g/dl (12.0-16.0); Imm Gran Abs Auto 0.05 X10*3/uL (0.00-0.03); Imm Gran Pct Auto 0.6 % (0.0-0.4); Lymphocytes Absolute Auto 2.2 X10*3/uL (1.2-4.9); Mean Corpuscular HGB Conc 32.7 g/dl (31.0-35.0); Mean Corpuscular Hemoglobin 32.1 pg (27.0-33.0); Mean Corpuscular Volume 98.2 fL (80.0-98.0); NRBC Abs Auto 0.000 X10*3/uL (0.0-0.012); NRBC Pct Auto 0.0 /100WBC (0.0-0.2); Platelet Count 227 X10*3/uL (160-400); Red Blood Count 3.83 X10*6/uL (4.20-5.50); White Blood Count 8.9 X10*3/uL (4.8-10.8)
[2025-08-21 06:16] LABS: Alanine Aminotransferase 91 U/L (0-31); Albumin Level 4.0 g/dL (3.5-5.0); Alkaline Phosphatase 58 U/L (39-117); Anion Gap 12 (12-20); Aspartate Amino Transferase 81 U/L (5-31); Blood Urea Nitrogen 39 mg/dL (9-16); Calcium 9.7 mg/dL (8.4-10.2); Carbon Dioxide 28 mmol/L (22-29); Chloride 105 mmol/L (96-108); Creatinine Clr Calc Pharmacy 46.2; Estimated Glomerular Filt Rate 47; Potassium 5.1 mmol/L (3.3-5.1); Sodium 140 mmol/L (135-145); Total Protein 6.7 g/dL (6.5-8.0)
--- NOTE | 2025-08-21 07:16 | P.PNIM_ITS ---
Subjective Subjective Date of Service: 08/21/25 Physical Exam 2 Vital Signs: Vital Signs: Last Vital Signs Temp 98.2 F 08/21/25 03:19 Pulse 62 08/21/25 03:19 Resp 16 08/21/25 03:19 BP 120/60 08/21/25 03:19 Pulse Ox 93 08/21/25 03:19 O2 Del Method Nasal Cannula 08/21/25 03:19 O2 Flow Rate 1 08/21/25 03:19 Oxygen Flow Rate 2 08/19/25 09:18 BMI result Body Mass Index 27.4 Objective Data Active Medications Acetaminophen (Acetaminophen 325 Mg Tablet) 650 mg PO Q6H PRN PRN Reason: Pain, Mild 1-3,fever,headache Last Admin: 08/20/25 00:56 Dose: 650 mg Documented By: OFELIA Albuterol Sulfate (Albuterol Sulfate 90 Mcg 8 Gm Inhaler) 2 puff INHALE Q4H PRN PRN Reason: Wheezing Albuterol/Ipratropium (Albuterol/Iprat 2.5/0.5mg 3 Ml Ampul.Neb) 3 ml INHALE Q4H PRN PRN Reason: Shortness of Breath/Wheezing Aspirin (Aspirin 81 Mg Tab.Chew) 81 mg PO DAILY [facility] Last Admin: 08/20/25 10:58 Dose: 81 mg Documented By: LIVIA Atorvastatin Calcium (Atorvastatin Calcium 80 Mg Tablet) 40 mg PO DAILY@1800 [facility] Last Admin: 08/20/25 18:04 Dose: 40 mg Documented By: RUTHIE Benzonatate (Benzonatate 100 Mg Capsule) 100 mg PO TID [facility] Last Admin: 08/20/25 20:19 Dose: 100 mg Documented By: ADDY Calcium Carbonate (Calcium Carbonate 750 Mg Tab.Chew) 750 mg PO Q4H PRN PRN Reason: Heartburn Diltiazem HCl (Diltiazem Hcl Cd 120 Mg Cap.Er.Deg) 120 mg PO DAILY@1800 [facility]; Protocol Last Admin: 08/20/25 18:04 Dose: 120 mg Documented By: RUTHIE Doxycycline Monohydrate (Doxycycline Monohydrate 100 Mg Capsule) 100 mg PO BID@0600,1800 [facility] Last Admin: 08/21/25 05:36 Dose: 100 mg Documented By: ADDY Enoxaparin Sodium (Enoxaparin Sodium 40 Mg/0.4 Ml Syringe) 40 mg SUBCUT Q24H [facility] Last Admin: 08/20/25 15:04 Dose: 40 mg Documented By: LIVIA Guaifenesin (Guaifenesin 200 Mg/10 Ml 10 Ml Liquid) 10 ml PO Q6H PRN PRN Reason: Cough Ibuprofen (Ibuprofen 400 Mg Tablet) 400 mg PO Q6H PRN PRN Reason: Fever or Pain, Mild (Pain Scale 1-3) Isosorbide Mononitrate (Isosorbide Mononitrate 60 Mg Tab.Er.24h) 60 mg PO DAILY@0600 [facility]; Protocol Last Admin: 08/21/25 05:36 Dose: 60 mg Documented By: ADDY Magnesium Hydroxide (Milk Of Magnesia 30 Ml Oral.Susp) 30 ml PO DAILY PRN PRN Reason: Constipation Melatonin (Melatonin 3 Mg Tablet) 6 mg PO BEDTIME PRN PRN Reason: Insomnia Patient Own Medication ( Darunavir 800 Mg Tablet) 800 each PO DAILY@1800 [facility] Last Admin: 08/20/25 18:05 Dose: 800 each Documented By: RUTHIE Patient Own Medication ( Genvoya Tablet) 1 each PO DAILY@1800 [facility] Last Admin: 08/20/25 18:05 Dose: 1 each Documented By: RUTHIE Ondansetron HCl (Ondansetron Hcl 4 Mg/2 Ml Vial) 4 mg IVPUSH Q8H PRN PRN Reason: Nausea and Vomiting Oseltamivir Phosphate (Oseltamivir Phosphate 30 Mg Capsule) 30 mg PO Q12H [facility] Stop: 08/23/25 23:01 Last Admin: 08/20/25 22:36 Dose: 30 mg Documented By: ADDY Prednisone (Prednisone 20 Mg Tablet) 40 mg PO DAILY@0600 [facility] Last Admin: 08/21/25 05:36 Dose: 40 mg Documented By: ADDY Sodium Chloride (0.9 % Sodium Chloride Flush 3 Ml Syringe) 3 ml IVFLUSH QSHIFT [facility] Last Admin: 08/20/25 20:19 Dose: 3 ml Documented By: ADDY Spironolactone (Spironolactone 25 Mg Tablet) 25 mg PO DAILY@0600 [facility]; Protocol Last Admin: 08/21/25 05:35 Dose: 25 mg Documented By: ADDY Valsartan (Valsartan 320 Mg Tablet) 320 mg PO DAILY@1800 [facility] Last Admin: 08/20/25 18:04 Dose: 320 mg Documented By: RUTHIE Labs 08/21/25 05:17 08/21/25 05:17 Labs: Laboratory Results - last 24 hr 08/21/25 05:17 MCV 98.2 H MCH 32.1 MCHC 32.7 RDW 13.4 Plt Count 227 MPV 10.3 Immature Gran % (Auto) 0.6 H Neut % (Auto) 61.2 Lymph % (Auto) 24.2 [place] % (Auto) 13.9 H Eos % (Auto) 0.0 Baso % (Auto) 0.1 Lymph # (Auto) 2.2 [place] # (Auto) 1.2 Eos # (Auto) 0.0 Baso # (Auto) 0.0 Abs Immat Gran (auto) 0.05 H Absolute Neuts (auto) 5.5 Absolute Nucleated RBC 0.000 Nucleated RBC % (auto) 0.0 Anion Gap 12 Estim Creat Clear Calc 46.2 Estimated GFR 47 Random Glucose 107 Calcium 9.7 D Total Bilirubin 0.3 AST 81 H ALT 91 H Alkaline Phosphatase 58 Total Protein 6.7 Albumin 4.0 Microbiology Microbiology Results: Microbiology 08/19/25 10:11 Blood Culture - Preliminary Blood - Venous No growth after 24 hours. 08/19/25 09:47 Blood Culture - Preliminary Blood - Venous No growth after 24 hours. Quality Stroke Does the patient have a stroke diagnosis?: No VTE Prior VTE?: No VTE Risk Level:: Medical - moderate - high VTE Device Contraindication: N/A - Device Ordered VTE Drug Contraindication: N/A - Med Ordered
[2025-08-21 07:48] VITALS: BP 114/55; PULSE 60; RESP 15; TEMP 36.5; O2SAT 92
--- NOTE | 2025-08-21 08:04 | P.DS_ITS ---
DS: Providers Provider Date of admission: 08/19/25 17:27 Date of discharge: 08/21/25 Primary care physician: Unknown Physician DS: Diagnosis Discharge Diagnosis (1) Influenza A: Status: Acute DS: Summary Hospital Course Hospital Course: Chief Complaint: Shortness of breath, dyspnea on exertion 69-year-old female with PMH of asthma (not on home O?), HIV with undetectable viral load on ART, hypertension, hyperlipidemia, tachycardia, GERD, CAD s/p stent 2 years ago, and reported history of valvular stenosis (valve unspecified) who presents with acute systemic and respiratory symptoms. She was evaluated at urgent care on Tuesday for URI symptoms. Viral panel was neg ative, no chest Xray was obtained, and she was started on doxycycline and prednisone. This morning, while working [place], she developed sudden diaphoresis, dizziness, nausea, and generalized weakness. She did not fall, though a brief syncopal episode is possible. During the episode, she had diarrhea without vomiting. She reports shortness of breath with pleuritic chest pain that worsens with coughing and deep inspiration. She endorses fatigue, chills, and productive cough with green sputum. She denies worsening chest pain or dyspnea prior to this episode and states these symptoms do not resemble her prior cardiac events requiring stent placement. She denies recent travel, sick contacts, or recent procedures. EMS noted an oxygen saturation of 91% on room air, and she was placed on 2 L nasal cannula, after noting to be hypoxic to the 87%on RA. Workup in ED - sepsis workup -ve except Flu A , elevated CRP CTA not feasible as pt has stated allergy to contrast , D-dimer -ve, inf etiology , Vlac, pro-neda -ve, troponin . ED course: Solumedrol, Ceftraixone, Pt being admitted for further medical mx of AHRF due to Flu A in the flu season in a pt with multiple medical comorbidities under observation after failing OP steroid and abx mx. Hospital course: The patient presented after a syncopal episode with shortness of breath and dyspnea on exertion. She was found to be hypoxic, requiring 2 L nasal cannula to maintain oxygen saturation >92%. Influenza A testing was positive. She remained afebrile, without leukocytosis, and hemodynamically stable throughout hospital ization. There was no radiographic or clinical evidence of bacterial pneumonia; therefore, antibiotics were not initiated. She was treated with oseltamivir and continuation of home steroids and nebulized bronchodilators for asthma exacerbation. Oxygen requirements improved, and she was successfully weaned off supplemental oxygen prior to discharge. Sepsis workup was unremarkable. No recurrent syncope occurred during hospitalization. Time spent discussing smoking cessation with patient: more than 10 minutes Status at Discharge Functional status at discharge: independent ambulation Overall status at discharge: patient is back to baseline Time Attestation Discharge Coordination Time (in mins): 65 Quality: Safe Use of Opioids Does Pt have an Active Cancer Diagnosis on the Problem List?: No Quality: Stroke Does the patient have a stroke diagnosis?: No Physical Exam Vital Signs: Vital Signs: Last Vital Signs Temp 97.7 F 08/21/25 07:48 Pulse 60 08/21/25 07:48 Resp 15 08/21/25 07:48 BP 114/55 L 08/21/25 07:48 Pulse Ox 92 08/21/25 07:48 O2 Del Method Room Air 08/21/25 07:48 O2 Flow Rate 1 08/21/25 03:19 Oxygen Flow Rate 2 08/19/25 09:18 BMI result Body Mass Index 27.4 Appearance: Alert. Oriented X3. Mild acute distress. CVS: Normal heart rate and rhythm. Pulses normal. Respiratory: No respiratory distress. Breath sounds coarse diminished and wheezes throughout Abdomen: Soft and nontender. Neuro: No motor deficit noted grossly DS: Data Data Completed and Pending Labs on day of discharge: Laboratory Results - last 24 hr 08/21/25 05:17 WBC 8.9 RBC 3.83 L Hgb 12.3 Hct 37.6 MCV 98.2 H MCH 32.1 MCHC 32.7 RDW 13.4 Plt Count 227 MPV 10.3 Immature Gran % (Auto) 0.6 H Neut % (Auto) 61.2 Lymph % (Auto) 24.2 [place] % (Auto) 13.9 H Eos % (Auto) 0.0 Baso % (Auto) 0.1 Lymph # (Auto) 2.2 [place] # (Auto) 1.2 Eos # (Auto) 0.0 Baso # (Auto) 0.0 Abs Immat Gran (auto) 0.05 H Absolute Neuts (auto) 5.5 Absolute Nucleated RBC 0.000 Nucleated RBC % (auto) 0.0 Sodium 140 Potassium 5.1 Chloride 105 Carbon Dioxide 28 Anion Gap 12 BUN 39 H Creatinine 1.15 Estim Creat Clear Calc 46.2 Estimated GFR 47 Random Glucose 107 Calcium 9.7 D Total Bilirubin 0.3 AST 81 H ALT 91 H Alkaline Phosphatase 58 Total Protein 6.7 Albumin 4.0 Preliminary micro results at discharge 08/19/25 10:11 Blood Culture - Preliminary Blood - Venous No growth after 24 hours. 08/19/25 09:47 Blood Culture - Preliminary Blood - Venous No growth after 24 hours. Discharge Plan Discharge Anticipated Discharge Date/Time: 08/21/25 10:47 Patient Disposition: Home, Self-Care Referrals: Physician,Unknown J [Primary Care Provider, Medical] - 1 Week Discharge Medications: New aspirin 81 mg Tablet,Chewable 81 mg PO DAILY 60 Days Qty: 60 3RF oseltamivir 30 mg Capsule 30 mg PO Q12H 2 Days Qty: 3 0RF guaifenesin 100 mg/5 mL Liquid 50 mg PO Q6H PRN (Reason: Cough) 15 Days Qty: 118 0RF benzonatate 100 mg Capsule 100 mg PO TID 30 Days Qty: 90 3RF Continued prednisone 20 mg tablet 40 mg PO DAILY@0600 spironolactone 25 mg tablet 25 mg PO DAILY@0600 isosorbide mononitrate 60 mg tablet extended release 24 hr 60 mg PO DAILY@1800 diltiazem HCl [DILT-XR] 120 mg capsule,ext.rel 24h degradable 120 mg PO DAILY@1800 albuterol sulfate 90 mcg/actuation HFA aerosol inhaler 2 puff INHALATION Q4H PRN (Reason: wheezing) doxycycline hyclate 100 mg tablet 100 mg PO BID@0600,1800 rosuvastatin 40 mg tablet 40 mg PO DAILY@1800 valsartan-hydrochlorothiazide 320-12.5 mg tablet 1 tab PO DAILY@1800 darunavir 800 mg tablet 800 mg PO DAILY@1800 Genvoya [id number] mg tablet 1 tab PO DAILY@1800 citrulline 600 mg Capsule 1,200 mg PO DAILY@1800 Discharge Orders: Discharge Order (Routine); Ordered 08/21/25 Ordered By: Yoanna Sanchez Diet: Low salt diet Activity on Discharge: As tolerated Stand Alone Forms: Patient Portal Discharge page Print Language: Sudanese Care Plan Goals: Medications: Continue prescribed antiviral medication (if started) and complete the full course. Use acetaminophen or ibuprofen as needed for fever, headache, and body aches. Avoid aspirin. Activity and Care at Home: Rest and maintain adequate hydration. Resume normal activities gradually as symptoms improve. Remain home from work/school until fever-free for at least 24 hours without fever-reducing medications. Infection Control: Wash hands frequently with soap and water or use alcohol-based bucket hooker. Cover coughs and sneezes; dispose of tissues properly. Avoid close contact with others, especially infants, elderly individuals, persons, and immunocompromised patients. Expected Course: Fever and body aches usually improve within 3?5 days. Cough and fatigue may persist for 1?2 weeks. Return Precautions (Seek Medical Care Urgently If): Worsening shortness of breath, chest pain, or difficulty breathing. Persistent high fever or fever returning after initial improvement. Confusion, severe weakness, dizziness, or inability to keep fluids down. Signs of dehydration or decreased urine output. Any new or concerning symptoms. Follow-Up: Follow up with primary care as needed or if symptoms do not improve within several days. Health Concerns: See above Plan of Treatment: See above Assessment: See above Patient Instructions: Influenza (DC)
[2025-08-21] MEDS: 0.9 % Sodium Chloride Flush 3 ML SYRINGE IVFLUSH (08:23)
[2025-08-21 10:35] VITALS: O2SAT 94
[2025-08-21 12:05] VITALS: BP 124/60; PULSE 68; RESP 18; TEMP 36.3; O2SAT 95
--- NOTE | 2025-08-21 12:24 | MHC.CM.PN ---
Patient discharged to home self care. Her spouse provided transportation home.
== END 2025-08-21 12:16 | disposition home or self-care (01) ==
LOC: HO.ED 11:13 → HO.EDOVER 17:33 → HO.S3 08-20 00:05
PROVIDERS: Admitting Provider Student in an Organized Health Care Education/Training Program; Emergency Provider Emergency Medicine; Visit Provider Student in an Organized Health Care Education/Training Program
DX: J10.1 Influenza due to other identified influenza virus with other respiratory manifestations (principal); R55 Syncope and collapse; B20 Human immunodeficiency virus [HIV] disease; I10 Essential (primary) hypertension; E78.5 Hyperlipidemia, unspecified; K21.9 Gastro-esophageal reflux disease without esophagitis; I25.10 Atherosclerotic heart disease of native coronary artery without angina pectoris; R06.02 Shortness of breath; R05.9 Cough, unspecified; R07.9 Chest pain, unspecified; R11.2 Nausea with vomiting, unspecified; R61 Generalized hyperhidrosis; R09.02 Hypoxemia; Z79.899 Other long term (current) drug therapy
CPT/HCPCS: 36415; 71250; 80048; 80053; 80076; 81001; 82803; 83605; 83690; 83735; 84145; 84484; 85025; 85379; 86140; 87040; 87637; 93005; 94640; 96361; 96365; 96372; 96375; 97162; 97165; 99221; 99285; J0696; J1650; J2919; J7120

== ENCOUNTER → 2025-08-19 09:30 | Outpatient (BNV) | payer MEDICARE, SELFPAY | PROVIDERS: Emergency Provider Emergency Medicine; Visit Provider Internal Medicine Cardiovascular Disease | DX: R94.31 Abnormal electrocardiogram [ECG] [EKG] (principal); R55 Syncope and collapse | CPT/HCPCS: 93010 ==

== ENCOUNTER → 2025-08-19 09:31 | Outpatient (BNV) | payer MEDICARE, SELFPAY | PROVIDERS: Emergency Provider Emergency Medicine; Visit Provider Radiology Diagnostic Radiology | DX: J98.09 Other diseases of bronchus, not elsewhere classified (principal); I25.10 Atherosclerotic heart disease of native coronary artery without angina pectoris; R91.8 Other nonspecific abnormal finding of lung field | CPT/HCPCS: 71250 ==

== ENCOUNTER 2025-08-19 17:27 | Outpatient (BNV) | payer MEDICARE, SELFPAY | END 2025-08-20 05:00 | PROVIDERS: Admitting Provider Student in an Organized Health Care Education/Training Program; Emergency Provider Emergency Medicine; Visit Provider Internal Medicine Cardiovascular Disease | DX: R09.02 Hypoxemia (principal) | CPT/HCPCS: 93010 ==

== ENCOUNTER → 2025-08-19 17:27 | Outpatient (BNV) | payer MEDICARE, SELFPAY | PROVIDERS: Admitting Provider Student in an Organized Health Care Education/Training Program; Emergency Provider Emergency Medicine; Visit Provider Student in an Organized Health Care Education/Training Program | DX: J10.1 Influenza due to other identified influenza virus with other respiratory manifestations (principal) | CPT/HCPCS: 99222; 99232; 99239 ==